=== PATIENT | male | born 1935 | race Caucasian/White ===

== ENCOUNTER 2017-03-18 18:36 | Emergency (ER) | payer OTHER, MEDICARE ==
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
[2017-03-18 20:41] VITALS: BP 132/88
== END 2017-03-18 20:40 | disposition home or self-care (01) ==
LOC: ER 18:36
DX: K40.91 Unilateral inguinal hernia, without obstruction or gangrene, recurrent (principal); J44.9 Chronic obstructive pulmonary disease, unspecified; Z99.81 Dependence on supplemental oxygen; I25.10 Atherosclerotic heart disease of native coronary artery without angina pectoris; I10 Essential (primary) hypertension; Z95.1 Presence of aortocoronary bypass graft
CPT/HCPCS: 99283

== ENCOUNTER 2017-03-22 12:00 | Inpatient (IN) | payer OTHER, MEDICARE ==
[~2017-03-22 12:00] MED LIST: GLYCOPYRROLATE INJ 0.4 MG/2 ML VIAL ONE; NEOSTIGMINE METHYLSULFATE 10 MG/10 ML VIAL ONE; ROCURONIUM BROMIDE INJ 50 MG/5 ML VIAL IV ONE; SUCCINYLCHOLINE CHLORIDE INJ 200 MG/10 ML VIAL ONE
[2017-03-22] MEDS ORDERED: NORMAL SALINE 1000 ML 1,000 ML IV ONE (12:16)
--- NOTE | 2017-03-22 12:20 | ER Document Report ---
ED Medical Screen (RME) - General Chief Complaint: Vomiting Stated Complaint: WEADKNESS Time Seen by Provider: 03/22/17 12:15 Notes: Patient has been vomiting since , about twice a day. Patient was here in this emergency department Thursday for a left inguinal hernia that had come out. The family relates that the hernia was pushed back in and the patient was discharged home, but he has been vomiting ever since. He is having bowel movements, his most recent being this morning and they are normal, no blood present. Patient says he has generalized abdominal discomfort. Patient is a COPD patient on home oxygen. TRAVEL OUTSIDE OF THE [place] IN LAST 30 DAYS: No - Related Data Allergies/Adverse Reactions: No Known Allergies Allergy (Verified 03/22/17 12:03) Past Medical History - Past Medical History Cardiac Medical History: Reports: Hx Congestive Heart Failure, Hx Coronary Artery Disease, Hx Hypercholesterolemia, Hx Hypertension Pulmonary Medical History: Reports: Hx COPD, Hx Pneumonia Renal/ Medical History: Denies: Hx Peritoneal Dialysis GI Medical History: Reports: Hx Ulcerative Colitis Psychiatric Medical History: Reports: Hx Depression Past Surgical History: Reports: Hx Abdominal Surgery, Hx Cardiac Surgery, Hx Coronary Artery Bypass Graft - Triple Bypass, Hx Inguinal Hernia, Hx Open Heart Surgery - Immunizations Hx Diphtheria, Pertussis, Tetanus Vaccination: Yes Physical Exam - Vital signs Vitals: Temp Pulse Resp BP Pulse Ox 96.8 F L 99 17 95/72 L 92 03/22/17 12:03 03/22/17 12:03 03/22/17 12:03 03/22/17 12:03 03/22/17 12:03 Course - Vital Signs Vital signs: Temp Pulse Resp BP Pulse Ox 96.8 F L 99 17 95/72 L 92 03/22/17 12:03 03/22/17 12:03 03/22/17 12:03 03/22/17 12:03 03/22/17 12:03
[2017-03-22 12:56] LABS: ABSOLUTE LYMPHOCYTES (AUTO) 1.4 10^3/uL (0.5-4.7); ABSOLUTE MONOCYTES (AUTO) 2.3 10^3/uL (0.1-1.4); ABSOLUTE NEUT (AUTO) 15.5 10^3/uL (1.7-8.2); BASOPHILS % (AUTO) 0.2 % (0-2); EOSINOPHILS % (AUTO) 0.1 % (0-6); HEMATOCRIT 39.5 % (37.9-51.0); HEMOGLOBIN 12.8 g/dL (13.5-17.0); HGB HCT DIFFERENCE -1.1; LYMPHOCYTES % (AUTO) 7.2 % (13-45); MEAN CORPUSCULAR HEMOGLOBIN 28.8 pg (27.0-33.4); MEAN CORPUSCULAR HGB CONC 32.5 g/dL (32.0-36.0); MEAN CORPUSCULAR VOLUME 89 fl (80-97); MONOCYTES % (AUTO) 12.1 % (3-13); RED BLOOD COUNT 4.45 10^6/uL (4.35-5.55); RED CELL DISTRIBUTION WIDTH 13.7 % (11.5-14.0); SEGMENTED NEUTROPHILS % (AUTO) 80.4 % (42-78); WHITE BLOOD COUNT 19.3 10^3/uL (4.0-10.5)
[2017-03-22 13:18] LABS: ALANINE AMINOTRANSFERASE 27 U/L (21-72); ALBUMIN 4.3 g/dL (3.5-5.0); ALKALINE PHOSPHATASE 80 U/L (38-126); ANION GAP 12 (5-19); ASPARTATE AMINO TRANSFERASE 39 U/L (17-59); BILIRUBIN,DIRECT 0.4 mg/dL (0.0-0.4); BILIRUBIN,TOTAL 1.1 mg/dL (0.2-1.3); BLOOD UREA NITROGEN 45 mg/dL (7-20); CALCIUM 9.8 mg/dL (8.4-10.2); CARBON DIOXIDE 34 mmol/L (22-30); CHLORIDE 91 mmol/L (98-107); GLUCOSE 122 mg/dL (75-110); LIPASE 35.8 U/L (23-300); POTASSIUM 4.3 mmol/L (3.6-5.0); SODIUM 137.4 mmol/L (137-145); TOTAL PROTEIN 8.2 g/dL (6.3-8.2)
[2017-03-22] MEDS ORDERED: NORMAL SALINE 500 ML IV PRN (13:43)
[2017-03-22] MEDS ORDERED: LEVOFLOXACIN 500 MG/D5W RTU 100 ML IV ONE (13:44)
--- NOTE | 2017-03-22 13:48 | ER Document Report ---
ED General - General Chief Complaint: Vomiting Stated Complaint: WEADKNESS Time Seen by Provider: 03/22/17 12:15 Mode of Arrival: Wheelchair Information source: Patient Notes: 82-year-old man with a history of COPD (2 L oxygen), coronary artery disease, hypertension brought into the emergency room because of nausea, vomiting, not keeping food down for the past several days. Patient was in the emergency room is ago for an evaluation of a reducible left inguinal hernia TRAVEL OUTSIDE OF THE [place] IN LAST 30 DAYS: No - HPI Onset: Last week Onset/Duration: Gradual Quality of pain: Dull Severity: Moderate Pain Level: 2 Associated symptoms: Nausea, Vomiting. denies: Chills, Fever Exacerbated by: Denies Relieved by: Denies Similar symptoms previously: Yes Recently seen / treated by doctor: Yes - Related Data Allergies/Adverse Reactions: No Known Allergies Allergy (Verified 03/22/17 12:03) Past Medical History - General Information source: Patient - Social History Smoking Status: Former Smoker Cigarette use (# per day): No Chew tobacco use (# tins/day): No Frequency of alcohol use: None Drug Abuse: None Lives with: Family Family History: Reviewed & Not Pertinent Patient has suicidal ideation: No Patient has homicidal ideation: No - Past Medical History Cardiac Medical History: Reports: Hx Congestive Heart Failure, Hx Coronary Artery Disease, Hx Hypercholesterolemia, Hx Hypertension Pulmonary Medical History: Reports: Hx COPD, Hx Pneumonia Renal/ Medical History: Denies: Hx Peritoneal Dialysis GI Medical History: Reports: Hx Ulcerative Colitis Psychiatric Medical History: Reports: Hx Depression Past Surgical History: Reports: Hx Abdominal Surgery, Hx Cardiac Surgery, Hx Coronary Artery Bypass Graft - Triple Bypass, Hx Inguinal Hernia, Hx Open Heart Surgery - Immunizations Hx Diphtheria, Pertussis, Tetanus Vaccination: Yes Hx Pneumococcal Vaccination: 10/12/13 Review of Systems - Review of Systems Constitutional: denies: Chills, Fever EENT: No symptoms reported Cardiovascular: No symptoms reported Respiratory: No symptoms reported Gastrointestinal: See HPI Genitourinary: No symptoms reported Male Genitourinary: No symptoms reported Musculoskeletal: No symptoms reported Skin: No symptoms reported Hematologic/Lymphatic: No symptoms reported Neurological/Psychological: No symptoms reported Physical Exam - Vital signs Vitals: Temp Pulse Resp BP Pulse Ox 96.8 F L 99 17 95/72 L 92 03/22/17 12:03 03/22/17 12:03 03/22/17 12:03 03/22/17 12:03 03/22/17 12:03 Notes: Physical exam: GENERAL: Man, alert and oriented 3, no acute distress. HEAD: Atraumatic, normocephalic. EYES: Pupils equal round and reactive to light, extraocular movements intact, sclera anicteric, conjunctiva are normal. ENT: Dry mucous membranes. NECK: Normal range of motion, supple without lymphadenopathy or JVD. LUNGS: Breath sounds clear to auscultation bilaterally and equal. No wheezes rales or rhonchi. HEART: Regular rate and rhythm without murmurs, rubs or gallops. ABDOMEN: Soft, normoactive bowel sounds. Patient does have old laparotomy scar with soft defects in the anterior abdominal wall with no obvious incarcerated hernia. There is no significant tenderness, no guarding, no rebound. Groin: Patient does have left tenderness and fullness in the inguinal region. Overlying skin is not erythematous no warmth Patient does have an elevated hard and nontender left testicle. The epididymis is somewhat swollen and is nontender to palpation. The right testicle is normal. rectal:Temperature is 99.0f. There is no prostate tenderness to palpation. Stool is (the patient is on iron). Stool studies sent EXTREMITIES: Normal range of motion, no pitting or edema. No clubbing or cyanosis. NEUROLOGICAL: Cranial nerves II through XII grossly intact. Normal speech, normal gait. PSYCH: Normal mood, normal affect. SKIN: Warm, Dry, normal turgor, no rashes or lesions noted. Course - Re-evaluation Re-evalutation: 03/22/17 15:04 Discussed case with radiologist: CT shows an incarcerated left inguinal hernia with obstruction. I consulted Dr. Mabry of surgery - Vital Signs Vital signs: Temp Pulse Resp BP Pulse Ox 99.0 F 99 27 H 119/89 H 99 03/22/17 13:43 03/22/17 12:03 03/22/17 16:01 03/22/17 16:01 03/22/17 16:01 - Laboratory Result Diagrams: 03/22/17 12:42 03/22/17 12:42 Laboratory results interpreted by me: 03/22/17 03/22/17 12:42 12:42 WBC 19.3 H Hgb 12.8 L Seg Neutrophils % 80.4 H Lymphocytes % 7.2 L Absolute Neutrophils 15.5 H Absolute Monocytes 2.3 H Chloride 91 L Carbon Dioxide 34 H BUN 45 H Glucose 122 H - Diagnostic Test Radiology reviewed: Image reviewed, Reports reviewed - The abdomen shows an incarcerated left inguinal hernia - EKG Interpretation by Me Rate: Normal Rhythm: NSR - EKG shows normal sinus rhythm with a ventricular rate of 96, no acute ST-T wave change Critical Care Note - Critical Care Note Total time excluding time spent on procedures (mins): 60 Discharge - Discharge Clinical Impression: Hernia repair, Hernia of abdominal wall Condition: Serious Disposition: ADMITTED INPATIENT
[2017-03-22] MEDS ORDERED: ONDANSETRON HCL INJ/PF 4 MG/2 ML SDV IV ONE (13:51)
--- NOTE | 2017-03-22 14:50 | RADIOLOGY REPORT (SQ) ---
EXAM DESCRIPTION: CHEST PA/LAT COMPLETED DATE/TIME: 03/22/2017 2:41 pm REASON FOR STUDY: COPD, vomiting, abdominal pain COMPARISON: 07/10/2016 NUMBER OF VIEWS: Two view. TECHNIQUE: Frontal and lateral radiographic views of the chest acquired. LIMITATIONS: None. FINDINGS: LUNGS AND PLEURA: No opacities, masses or pneumothorax. No pleural effusion. MEDIASTINUM AND HILAR STRUCTURES: No masses or contour abnormalities. HEART AND VASCULATURE: Heart normal size. No evidence for failure. Prior CABG. BONES: No acute findings. HARDWARE: CABG hardware. OTHER: No other significant finding. IMPRESSION: NO SIGNIFICANT RADIOGRAPHIC FINDING IN THE CHEST. PRIOR CABG. TECHNICAL DOCUMENTATION: JOB ID: [id number] [employer]- All Rights Reserved
--- NOTE | 2017-03-22 14:56 | RADIOLOGY REPORT (SQ) ---
EXAM DESCRIPTION: CT ABD/PELVIS WITH IV ONLY COMPLETED DATE/TIME: 03/22/2017 2:34 pm REASON FOR STUDY: abd pain COMPARISON: None. TECHNIQUE: CT scan of the abdomen and pelvis performed using helical scanning technique with dynamic intravenous contrast injection. No oral contrast. Images reviewed with lung, soft tissue, and bone windows. Reconstructed coronal and sagittal MPR images reviewed. Delayed images for evaluation of the urinary system also acquired. All images stored on PACS. All CT scanners at this facility use dose modulation, iterative reconstruction, and/or weight based d osing when appropriate to reduce radiation dose to as low as reasonably achievable (ALARA). [facility]: Dose Right [facility]: CareDose [facility]: Dose Right [facility]: Teradose 4D [facility]: AssayMetrics CONTRAST TYPE AND DOSE: 70 Isovue 370- low osmolar. RENAL FUNCTION: GFR > 60. RADIATION DOSE: 17.73mGy. LIMITATIONS: None. FINDINGS: LOWER CHEST: Patchy airspace opacities within the right middle lobe and left lower lobe. LIVER: Normal size. No masses or dilated ducts. SPLEEN: Normal size. No focal lesions. PANCREAS: No masses. No significant calcifications. No adjacent inflammation or peripancreatic fluid collections. Pancreatic duct not dilated. GALLBLADDER: No identified stones by CT criteria. No inflammatory changes to suggest cholecystitis. ADRENAL GLANDS: No significant masses or asymmetry. RIGHT KIDNEY AND URETER: No solid masses. No significant calcifications. No hydronephrosis or hyd roureter. LEFT KIDNEY AND URETER: No solid masses. No significant calcifications. No hydronephrosis or hydr oureter. AORTA AND VESSELS: Extensive atherosclerotic disease with infrarenal abdominal aortic aneurysm measur ing 4.9 x 4.7 cm and extending 5.6 cm in the craniocaudal dimension to the level of the iliac artery bifurcation. No acute injury identified. RETROPERITONEUM: No retroperitoneal adenopathy, hemorrhage or masses. BOWEL AND PERITONEAL CAVITY: Fluid distension of small bowel loops compatible with obstruction with t ransition point at a left inguinal hernia compatible with incarceration. No pneumatosis or free air. Large bowel loops are grossly normal. APPENDIX: Not visualized. PELVIS: No mass or free fluid. Normal bladder. ABDOMINAL WALL: No masses. Left inguinal hernia containing fat and in tear serrated loop of small misael wel. BONES: Degenerative change without fracture or suspicious osseous lesion. OTHER: No other significant finding. IMPRESSION: SMALL BOWEL OBSTRUCTION SECONDARY TO INCARCERATED LEFT INGUINAL HERNIA. NO PNEUMATOSIS OR FREE AIR. 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 FOLLOW-UP VASCULAR SURGICAL CONSULTATION RIGHT HIP. PATCHY AIRSPACE OPACITIES WITHIN THE RIGHT MIDDLE LOBE AND LEFT LOWER LOBE MAY REPRESENT ASPIRATION O R DEVELOPING PNEUMONIA. COMMENT: Pertinent findings on the imaging study reported as a CRITICAL RESULT to EKTA SIMON MD at14:50 on 03/22/2017. TECHNICAL DOCUMENTATION: JOB ID: [id number] Quality ID # [id number]: Final reports with documentation of one or more dose reduction techniques (e.g., Au tomated exposure control, adjustment of the mA and/or kV according to patient size, use of iterative reconstruction technique) 2010 [employer]- All Rights Reserved
[2017-03-22 15:33] LABS: PROTHROMBIN TIME 14.1 SEC (11.4-15.4)
[2017-03-22 16:46] LABS: CREATINE KINASE MB 4.29 ng/mL (<4.55)
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
[2017-03-22 16:57] LABS: TROPONIN I 0.036 ng/mL
[2017-03-22] MEDS ORDERED: FENTANYL CITRATE INJ/PF 250 MCG/5 ML AMPULE ONE (16:58)
[2017-03-22] MEDS ORDERED: MIDAZOLAM 2 MG/2 ML INJ ONE (16:58)
[2017-03-22] MEDS ORDERED: PROPOFOL INJ 200 MG/20 ML VIAL IV ONE (16:59)
[2017-03-22] MEDS ORDERED: MORPHINE SULFATE 10 MG/ML INJ ONE (17:00)
[2017-03-22] MEDS ORDERED: BUPIVACAINE HCL 0.25 % INJ/PF (2.5 MG/1 ML) 30 ML VIAL ONE (19:04)
[2017-03-22] MEDS ORDERED: AMPICILLIN SOD/SULBACTAM 1.5 GM VIAL ONE (20:18)
[2017-03-22] MEDS ORDERED: IPRATROPIUM/ALBUTEROL 0.5-2.5 MG/3 ML AMPUL NEB ONE (20:23)
[2017-03-22 20:25] LABS: ARTERIAL BLOOD BASE EXCESS 3.6 mmol/L; ARTERIAL BLOOD O2 SATURATION 96.3 % (94-98)
--- NOTE | 2017-03-22 20:48 | OPERATIVE REPORT E ---
Operative Report NAME: AUSTIN LEWIS : 1935 AGE: 82Y DATE OF SURGERY: 03/22/2017 ROOM: ED07 PREOPERATIVE DIAGNOSIS: Incarcerated left inguinal hernia with bowel obstruction. POSTOPERATIVE DIAGNOSIS: Incarcerated left inguinal hernia with bowel obstruction. OPERATION: 1. Reduction of incarcerated left inguinal hernia and repair with mesh plug. 2. Left orchiectomy. SURGEON: SAM BUCK M.D. INDICATIONS: This is an 82-year-old male with known COPD and oxygen dependent on 2 L noted to have cough, nausea, and some discomfort in the left inguinal area. He had a CT scan of the abdomen today in the Emergency Room and noted to have an incarcerated left inguinal hernia with small bowel obstruction. The patient also has possible pneumonia due to aspiration of the right middle lobe and left lower lobe on CT scan. We had initially some difficulty deciding whether to do the patient right away or wait until we can make arrangements for possible transfer to [facility] postoperative if indeed he will not be extubated postoperatively. DESCRIPTION OF PROCEDURE: After adequate general anesthesia, the patient was placed in supine position, and the abdomen and the left groin and scrotal areas were then prepped and draped in the usual sterile fashion. An appropriate timeout was obtained. The patient had a previous scar from a left inguinal hernia repair done in the past. An incision made over the scar just extended distally and proximally about 1 cm on each end. The incision deepened through the Neda's, and eventually the hernia sac was noted. The sac was then dissected all the way down into the fascia, and the sac has small bowel inside that appears to be viable or pink. The hernia defect roughly measures about 1.5 cm in diameter. The defect needed to be enlarged laterally by cutting through what appears to be mesh. The defect was enlarged at least 1 cm longer, and this time, the sac was opened, and the bowel noted to be viable was then pushed down into the abdominal cavity. There was some clear yellowish fluid that was suctioned out from the sac and just underneath it. The bowel was further inspected through the sac and definitely appeared viable. Next, the sac was then incised and divided. The sac opening just above the defect was then closed with running suture using 2-0 Vicryl suture. The sac was then pushed down into the abdominal cavity. Next, the cord structures appear to be right inside the defect, and to have a better closure, an orchiectomy would need to be done. I asked consent from the patient and the family prior to the procedure that orchiectomy most likely will be performed. The cord structures were then clamped right over the area of the sac that was divided, and subsequently was then divided in between another clamp. The cord structures were then ligated with 2-0 Vicryl ties. Next, the left scrotum was then bluntly dissected and completely removed. Hemostasis was further obtained with the use of electrocautery around the dissection areas. The operative site was then copiously irrigated with saline solution, and adequate hemostasis was noted. Next, the hernia defect was then closed with small mesh plug and sutured to the 4 corners of the shelving portion of the inguinal ligament and towards the conjoined tendon and external oblique. Next, flap mesh was then laid on top of the plug which was then trimmed about 3 cm x about 2.5 cm. It was then anchored to the shelving portion of the inguinal ligament just above the mesh plug and also to the conjoined tendon and external oblique, again just above the mesh plug. Next, the external oblique aponeurosis was then closed over the mesh with 2-0 Vicryl interrupted sutures. The mesh was partially compressed underneath, and there is not much of tension. Next, the Neda's was then closed with interrupted suture using 3-0 Vicryl and the skin closed with winifred. The patient tolerated the procedure well. Marcaine with epinephrine was injected on the fascia prior to placement of the mesh plug and the flap mesh. Again, local anesthesia with Marcaine and with epinephrine was also injected around the incision site in the subcutaneous areas. The skin was then closed with winifred. Sterile dressings were placed over the operative site. Needle, instrument, and sponge counts were all correct and estimated blood loss about 20 mL. The patient was extubated at the end of the procedure and appears to be tolerating extubation which will most likely avoid transfer to a tertiary hospital. He will be watched closely in the recovery room. He will then be transferred to the Intensive Care Unit. DICTATING PHYSICIAN: SAM BUCK M.D. [id number] PHY#: [id number] 2016 ID: [id number] JOB#: [id number] ACCT: [id number] cc:SAM BUCK M.D. >
[2017-03-22] MEDS ORDERED: MORPHINE SULFATE 10 MG/ML INJ IV PRN ×2 (21:52→21:53)
[2017-03-22] MEDS ORDERED: ONDANSETRON HCL INJ/PF 4 MG/2 ML SDV IV PRN (21:57)
[2017-03-22] MEDS ORDERED: NORMAL SALINE 1000 ML 1,000 ML IV PRN (21:59)
[2017-03-22 22:45] LABS: ANION GAP 9 (5-19); BLOOD UREA NITROGEN 27 mg/dL (7-20); CALCIUM 7.8 mg/dL (8.4-10.2); CARBON DIOXIDE 28 mmol/L (22-30); CHLORIDE 102 mmol/L (98-107); CREATINE KINASE 180 U/L (55-170); CREATININE RESULT 0.68 mg/dL (0.52-1.25); GLUCOSE 84 mg/dL (75-110); PHOSPHORUS 3.1 mg/dL (2.5-4.5); POTASSIUM 4.1 mmol/L (3.6-5.0); SODIUM 138.8 mmol/L (137-145)
[2017-03-22 22:46] LABS: MAGNESIUM 1.8 mg/dL (1.6-2.3)
[2017-03-22 22:55] LABS: APPEARANCE,URINE CLEAR; BILIRUBIN,URINE NEGATIVE (NEGATIVE); GLUCOSE, URINE NEGATIVE (NEGATIVE); KETONES,URINE TRACE mg/dL (NEGATIVE); LEUKOCYTE ESTERASE,URINE NEGATIVE (NEGATIVE); NITRITE,URINE NEGATIVE (NEGATIVE); PROTEIN,URINE NEGATIVE (NEGATIVE); UROBILINOGEN,URINE NEGATIVE mg/dL (<2.0)
[2017-03-22 22:57] LABS: CREATINE KINASE MB 5.77 ng/mL (<4.55); TROPONIN I 0.021 ng/mL
[2017-03-23] MEDS: FLUTICASONE NASAL SPRAY 50 MCG/SPRY 120 SPRAY/16 GM NASL SCH ×3 (01:27→21:14)
[2017-03-23] MEDS: IPRATROPIUM/ALBUTEROL 0.5-2.5 MG/3 ML AMPUL NEB SCH ×4 (02:29→20:09)
[2017-03-23] MEDS ORDERED: AMPICILLIN SOD/SULBACTAM 3 GM VIAL IV PRN (03:00)
[2017-03-23] MEDS ORDERED: AMPICILLIN SOD/SULBACTAM 3 GM VIAL ONE (03:34)
[2017-03-23] MEDS: AMPICILLIN SODIUM/SULBACTAM NA 3 GM in NORMAL SALINE 100 ML IV SCH ×4 (03:42→20:33)
[2017-03-23 05:13] LABS: ABSOLUTE EOSINOPHILS # (AUTO) 0.3 10^3/uL (0.0-0.6); ABSOLUTE LYMPHOCYTES (AUTO) 1.4 10^3/uL (0.5-4.7); ABSOLUTE MONOCYTES (AUTO) 1.7 10^3/uL (0.1-1.4); ABSOLUTE NEUT (AUTO) 7.8 10^3/uL (1.7-8.2); BASOPHILS % (AUTO) 0.4 % (0-2); EOSINOPHILS % (AUTO) 2.4 % (0-6); HEMATOCRIT 31.1 % (37.9-51.0); HGB HCT DIFFERENCE -1.1; LYMPHOCYTES % (AUTO) 12.7 % (13-45); MEAN CORPUSCULAR HGB CONC 32.1 g/dL (32.0-36.0); MEAN CORPUSCULAR VOLUME 90 fl (80-97); MONOCYTES % (AUTO) 15.5 % (3-13); RED BLOOD COUNT 3.44 10^6/uL (4.35-5.55); RED CELL DISTRIBUTION WIDTH 13.7 % (11.5-14.0); WHITE BLOOD COUNT 11.2 10^3/uL (4.0-10.5)
[2017-03-23 05:19] LABS: ANION GAP 7 (5-19); BLOOD UREA NITROGEN 22 mg/dL (7-20); CALCIUM 7.7 mg/dL (8.4-10.2); CARBON DIOXIDE 26 mmol/L (22-30); CHLORIDE 107 mmol/L (98-107); CREATINE KINASE 150 U/L (55-170); CREATININE RESULT 0.62 mg/dL (0.52-1.25); GLUCOSE 79 mg/dL (75-110); POTASSIUM 3.7 mmol/L (3.6-5.0); SODIUM 139.5 mmol/L (137-145)
[2017-03-23 05:32] LABS: CREATINE KINASE MB 5.06 ng/mL (<4.55); TROPONIN I 0.024 ng/mL
[2017-03-23] MEDS ORDERED: LEVOFLOXACIN 500 MG/D5W RTU 500 MG/100 ML RTUPB IV SCH (06:00)
--- NOTE | 2017-03-23 06:16 | PDOC CONSULTATION ---
Consultation Consult Date: 03/22/17 Attending physician:: SAM BUCK Consult reason:: Hypotension, coronary artery disease, COPD History of Present Illness Admission Date/PCP: 03/22/17 15:49 LEIGH DUDLEY NP Patient complains of: 4 days of inguinal pain History of Present Illness: AUSTIN LEWIS is a 82 year old male with a past medical history of coronary artery bypass, COPD, hypertension, CHF, Depression, Ulcerative colitis and right -sided inguinal repair. Patient was in the emergency room 4 days ago with a left incarcerated inguinal hernia it was reduced and he was sent home however the following day pain returned after an episode of coughing prompting him to return to the emergency room where he was found to have a incarcerated left inguinal hernia and transferred to the surgical service. Postoperatively he is with hypotension and requiring oxygen in the ICU prompting hospitalist consultation. Patient is awake and alert denying shortness of breath chest pain nausea or vomiting. Past Medical History Cardiac Medical History: Reports: Congestive Heart Failure, Coronary Artery Disease, Hyperlipidema, Hypertension Pulmonary Medical History: Reports: Chronic Obstructive Pulmonary Disease (COPD) , Pneumonia GI Medical History: Reports: Ulcerative Colitis Psychiatric Medical History: Reports: Depression Past Surgical History Past Surgical History: Reports: Coronary Artery Bypass Graft - Triple Bypass Social History Information Source: Patient, [facility] Records Lives with: Family Smoking Status: Former Smoker Frequency of Alcohol Use: None Hx Recreational Drug Use: No Drugs: None Hx Prescription Drug Abuse: No - Advance Directive Resuscitation Status: Full Code Family History Family History: Hypertension Parental Family History Reviewed: Yes Children Family History Reviewed: Yes Sibling(s) Family History Reviewed.: Yes Medication/Allergy Home Medications: Albuterol Sulfate [Ventolin 0.083% Neb 2.5 mg/3 mL Ampul] 2.5 mg NEB QID Aspirin [Aspirin 325 mg Tablet] 325 mg PO DAILY 07/11/16 Cilostazol 50 mg PO BID 07/11/16 Ferrous Sulfate [Iron] 324 mg PO DAILY 07/11/16 Mesalamine [Pentasa] 1,500 mg PO BID 07/11/16 Nitroglycerin 0.4 mg SL PRN 07/11/16 Sertraline HCl 150 mg PO HSP PRN 07/11/16 Simvastatin 40 mg PO QHS 07/11/16 Terazosin HCl 4 mg PO QHS 07/11/16 Budesonide [Pulmicort 180 mcg Flexhaler] 1 puff IH DAILY PRN #1 aer.[email or web address] 07/14 Doxycycline Hyclate [Vibramycin 100 mg Tablet] 100 mg PO Q12 #14 tablet Metoprolol Tartrate [Lopressor 25 mg Tablet] 12.5 mg PO BID #30 07/14/16 Prednisone 20 mg PO ASDIR PRN #30 tablet 07/14/16 Tiotropium [place] [Spiriva Handihaler 5 Cap/Kit (18 Mcg/Cap)] 1 cap IH DAILY # 30 kit 07/14/16 Allergies/Adverse Reactions: No Known Allergies Allergy (Verified 03/22/17 12:03) Review of Systems Constitutional: ABSENT: chills, fever(s), headache(s), weight gain, weight loss Eyes: ABSENT: visual disturbances Ears: ABSENT: hearing changes Cardiovascular: ABSENT: chest pain, dyspnea on exertion, edema, orthropnea, palpitations Respiratory: ABSENT: cough, hemoptysis Gastrointestinal: ABSENT: abdominal pain, constipation, diarrhea, hematemesis, hematochezia, nausea, vomiting Genitourinary: ABSENT: dysuria, hematuria Musculoskeletal: ABSENT: joint swelling Integumentary: ABSENT: rash, wounds Neurological: ABSENT: abnormal gait, abnormal speech, confusion, dizziness, focal weakness, syncope Psychiatric: ABSENT: anxiety, depression, homidical ideation, suicidal ideation Endocrine: ABSENT: cold intolerance, heat intolerance, polydipsia, polyuria Hematologic/Lymphatic: ABSENT: easy bleeding, easy bruising Physical Exam Vital Signs: Temp Pulse Resp BP Pulse Ox 97.9 F 82 20 122/58 L 99 03/23/17 05:20 03/23/17 05:20 03/23/17 05:20 03/23/17 05:20 03/23/17 05:20 Intake & Output 03/21/17 03/22/17 03/23/17 11:59 11:59 11:59 Intake Total 4937 Output Total 5680 Balance 3087 Weight 68.7 kg General appearance: PRESENT: no acute distress, well-developed, well-nourished Head exam: PRESENT: atraumatic, normocephalic Eye exam: PRESENT: conjunctiva pink, EOMI, PERRLA. ABSENT: scleral icterus Ear exam: PRESENT: normal external ear exam Mouth exam: PRESENT: moist, tongue midline Neck exam: ABSENT: carotid bruit, JVD, lymphadenopathy, thyromegaly Respiratory exam: PRESENT: clear to auscultation tyler. ABSENT: rales, rhonchi, wheezes Cardiovascular exam: PRESENT: RRR. ABSENT: diastolic murmur, rubs, systolic murmur Pulses: PRESENT: normal dorsalis pedis pul Vascular exam: PRESENT: normal capillary refill GI/Abdominal exam: PRESENT: normal bowel sounds, soft. ABSENT: distended, guarding, mass, organolmegaly, rebound, tenderness Rectal exam: PRESENT: deferred Extremities exam: PRESENT: full ROM. ABSENT: calf tenderness, clubbing, pedal edema Neurological exam: PRESENT: alert, awake, oriented to person, oriented to place , oriented to time, oriented to situation, CN II-XII grossly intact. ABSENT: motor sensory deficit Psychiatric exam: PRESENT: appropriate affect, normal mood. ABSENT: homicidal ideation, suicidal ideation Skin exam: PRESENT: dry, intact, warm. ABSENT: cyanosis, rash Results Laboratory Results: 03/23/17 04:45 03/23/17 04:45 03/22/17 03/22/17 03/22/17 15:50 20:08 22:00 WBC RBC Hgb Hct MCV MCH MCHC RDW Plt Count Seg Neutrophils % Lymphocytes % Monocytes % Eosinophils % Basophils % Absolute Neutrophils Absolute Lymphocytes Absolute Monocytes Absolute Eosinophils Absolute Basophils Carbonic Acid 1.83 H HCO3/H2CO3 Ratio 16:1 ABG pH 7.32 L ABG pCO2 60.8 H ABG pO2 91.8 ABG HCO3 30.9 H ABG O2 Saturation 96.3 ABG Base Excess 3.6 FiO2 6 LITERS Sodium 138.8 Potassium 4.1 Chloride 102 Carbon Dioxide 28 Anion Gap 9 BUN 27 H Creatinine 0.68 Est GFR ( Amer) > 60 Est GFR (Non-Af Amer) > 60 Glucose 84 Calcium 7.8 L Phosphorus 3.1 Magnesium 1.8 Urine Color Urine Appearance Urine pH Ur Specific [place] Urine Protein Urine Glucose (UA) Urine Ketones Urine Blood Urine Nitrite Ur Leukocyte Esterase Urine WBC (Auto) Urine RBC (Auto) Blood Type A POSITIVE Antibody Screen NEGATIVE 03/22/17 03/23/17 03/23/17 22:00 04:45 04:45 WBC 11.2 H RBC 3.44 L Hgb 10.0 L D Hct 31.1 L MCV 90 MCH 29.0 MCHC 32.1 RDW 13.7 Plt Count 261 Seg Neutrophils % 69.0 Lymphocytes % 12.7 L Monocytes % 15.5 H Eosinophils % 2.4 Basophils % 0.4 Absolute Neutrophils 7.8 Absolute Lymphocytes 1.4 Absolute Monocytes 1.7 H Absolute Eosinophils 0.3 Absolute Basophils 0.0 Carbonic Acid HCO3/H2CO3 Ratio ABG pH ABG pCO2 ABG pO2 ABG HCO3 ABG O2 Saturation ABG Base Excess FiO2 Sodium 139.5 Potassium 3.7 Chloride 107 Carbon Dioxide 26 Anion Gap 7 BUN 22 H Creatinine 0.62 Est GFR ( Amer) > 60 Est GFR (Non-Af Amer) > 60 Glucose 79 Calcium 7.7 L Phosphorus Magnesium Urine Color YELLOW Urine Appearance CLEAR Urine pH 5.0 Ur Specific [place] 1.040 Urine Protein NEGATIVE Urine Glucose (UA) NEGATIVE Urine Ketones TRACE H Urine Blood SMALL H Urine Nitrite NEGATIVE Ur Leukocyte Esterase NEGATIVE Urine WBC (Auto) 0 Urine RBC (Auto) 15 Blood Type Antibody Screen 03/22/17 03/22/17 03/22/17 15:50 22:00 22:00 Creatine Kinase 173 H 180 H CK-MB (CK-2) 5.77 H Troponin I 0.021 03/23/17 03/23/17 04:45 04:45 Creatine Kinase 150 CK-MB (CK-2) 5.06 H Troponin I 0.024 Impressions: Chest X-Ray 03/22/17 12:17 IMPRESSION: NO SIGNIFICANT RADIOGRAPHIC FINDING IN THE CHEST. PRIOR CABG. Abdomen/Pelvis CT 03/22/17 13:49 IMPRESSION: SMALL BOWEL OBSTRUCTION SECONDARY TO INCARCERATED LEFT INGUINAL HERNIA. NO PNEUMATOSIS OR FREE AIR. 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 FOLLOW-UP VASCULAR SURGICAL CONSULTATION RIGHT HIP. PATCHY AIRSPACE OPACITIES WITHIN THE RIGHT MIDDLE LOBE AND LEFT LOWER LOBE MAY REPRESENT ASPIRATION OR DEVELOPING PNEUMONIA. Assessment & Plan - Diagnosis (1) Hypotension Is this a current diagnosis for this admission?: YesPlan: Most likely secondary to perioperative anesthesia and mild dehydration he is comfortable and asymptomatic with a map greater than 65 I will consider a IV fluid challenge if urine output decreases followed by pressors as needed (2) CAD (coronary artery disease) Qualifiers: Coronary Disease-Associated Artery/Lesion type: unspecified vessel or lesion type [place] vs. transplanted heart: [place] heart Associated angina: without angina Qualified Code(s): I25.10 - Atherosclerotic heart disease of [place] coronary artery without angina pectoris Is this a current diagnosis for this admission?: YesPlan: Resumption of home regiment of aspirin and beta-derick as blood pressure allows. Will obtain cardiac enzymes given perioperative hypotension and possible differential diagnosis of acute LA. (3) COPD exacerbation Is this a current diagnosis for this admission?: YesPlan: Albuterol Atrovent, flutter valve, incentive spirometry and early mobilization. - Time Time Spent: 30 to 50 Minutes
--- NOTE | 2017-03-23 07:31 | RADIOLOGY REPORT (SQ) ---
EXAM DESCRIPTION: CHEST SINGLE VIEW COMPLETED DATE/TIME: 03/23/2017 7:11 am REASON FOR STUDY: Cough/SOB COMPARISON: 03/22/2017. EXAM PARAMETERS: NUMBER OF VIEWS: One view. TECHNIQUE: Single frontal radiographic view of the chest acquired. RADIATION DOSE: NA LIMITATIONS: Mild interstitial markings. FINDINGS: LUNGS AND PLEURA: No opacities, masses or pneumothorax. No pleural effusion. Mild interst itial markings. Small scar-atelectasis. MEDIASTINUM AND HILAR STRUCTURES: No masses. Contour normal. HEART AND VASCULAR STRUCTURES: Heart normal in size. Normal vasculature. BONES: Cyst median sternotomy. HARDWARE: None in the chest. OTHER: No other significant finding. IMPRESSION: NO ACUTE RADIOGRAPHIC FINDING IN THE CHEST. No acute findings. TECHNICAL DOCUMENTATION: JOB ID: [id number]
[2017-03-23 08:42] LABS: ARTERIAL BLOOD BASE EXCESS 2.1 mmol/L; ARTERIAL BLOOD O2 SATURATION 97.1 % (94-98)
[2017-03-23] MEDS ORDERED: NORMAL SALINE 1000 ML 1,000 ML IV PRN (09:38)
--- NOTE | 2017-03-23 09:38 | EKG REPORT ---
SEVERITY:- BORDERLINE ECG - SINUS RHYTHM RIGHT AXIS DEVIATION BORDERLINE INFERIOR Q WAVES : Confirmed by: Shayla Calvin 23-Mar-2017 09:37:11
--- NOTE | 2017-03-23 09:38 | EKG REPORT ---
SEVERITY:- OTHERWISE NORMAL ECG - SINUS RHYTHM RIGHT AXIS DEVIATION : Confirmed by: Shayla Calvin 23-Mar-2017 09:37:06
[2017-03-23] MEDS: ASPIRIN 325 MG TABLET PO SCH (10:51)
[2017-03-23] MEDS: METOPROLOL TARTRATE 25 MG TABLET PO SCH ×2 (10:54→18:43)
[2017-03-23] MEDS: MESALAMINE 250 MG CAPSULE.SA PO SCH ×2 (10:54→18:44)
--- NOTE | 2017-03-23 11:00 | PDOC PROGRESS REPORT ---
Subjective Progress Note for:: 03/23/17 Subjective:: Patient is tolerating clear liquid diet, good pain control. His extubated without complication Physical Exam Vital Signs: Temp Pulse Resp BP Pulse Ox 98.0 F 90 21 H 133/67 H 100 03/23/17 08:00 03/23/17 08:38 03/23/17 08:38 03/23/17 08:00 03/23/17 08:38 Intake & Output 03/22/17 03/23/17 03/24/17 06:59 06:59 06:59 Intake Total 1937 Output Total 1050 Balance 887 Weight 68.7 kg General appearance: PRESENT: no acute distress GI/Abdominal exam: PRESENT: other - Inguinal herniorrhaphy dressing dry and intact. Results Laboratory Results: 03/23/17 04:45 03/23/17 04:45 03/22/17 03/22/17 03/23/17 22:00 22:00 04:45 WBC RBC Hgb Hct MCV MCH MCHC RDW Plt Count Seg Neutrophils % Lymphocytes % Monocytes % Eosinophils % Basophils % Absolute Neutrophils Absolute Lymphocytes Absolute Monocytes Absolute Eosinophils Absolute Basophils Carbonic Acid HCO3/H2CO3 Ratio ABG pH ABG pCO2 ABG pO2 ABG HCO3 ABG O2 Saturation ABG Base Excess FiO2 Sodium 138.8 139.5 Potassium 4.1 3.7 Chloride 102 107 Carbon Dioxide 28 26 Anion Gap 9 7 BUN 27 H 22 H Creatinine 0.68 0.62 Est GFR ( Amer) > 60 > 60 Est GFR (Non-Af Amer) > 60 > 60 Glucose 84 79 Calcium 7.8 L 7.7 L Phosphorus 3.1 Magnesium 1.8 Urine Color YELLOW Urine Appearance CLEAR Urine pH 5.0 Ur Specific [place] 1.040 Urine Protein NEGATIVE Urine Glucose (UA) NEGATIVE Urine Ketones TRACE H Urine Blood SMALL H Urine Nitrite NEGATIVE Ur Leukocyte Esterase NEGATIVE Urine WBC (Auto) 0 Urine RBC (Auto) 15 03/23/17 03/23/17 04:45 08:25 WBC 11.2 H RBC 3.44 L Hgb 10.0 L D Hct 31.1 L MCV 90 MCH 29.0 MCHC 32.1 RDW 13.7 Plt Count 261 Seg Neutrophils % 69.0 Lymphocytes % 12.7 L Monocytes % 15.5 H Eosinophils % 2.4 Basophils % 0.4 Absolute Neutrophils 7.8 Absolute Lymphocytes 1.4 Absolute Monocytes 1.7 H Absolute Eosinophils 0.3 Absolute Basophils 0.0 Carbonic Acid 1.58 H HCO3/H2CO3 Ratio 18:1 ABG pH 7.35 ABG pCO2 52.6 H ABG pO2 98.2 ABG HCO3 28.5 H ABG O2 Saturation 97.1 ABG Base Excess 2.1 FiO2 3L Sodium Potassium Chloride Carbon Dioxide Anion Gap BUN Creatinine Est GFR ( Amer) Est GFR (Non-Af Amer) Glucose Calcium Phosphorus Magnesium Urine Color Urine Appearance Urine pH Ur Specific [place] Urine Protein Urine Glucose (UA) Urine Ketones Urine Blood Urine Nitrite Ur Leukocyte Esterase Urine WBC (Auto) Urine RBC (Auto) 03/22/17 03/22/17 03/23/17 22:00 22:00 04:45 Creatine Kinase 180 H 150 CK-MB (CK-2) 5.77 H Troponin I 0.021 03/23/17 04:45 Creatine Kinase CK-MB (CK-2) 5.06 H Troponin I 0.024 Impressions: Abdomen/Pelvis CT 03/22/17 13:49 IMPRESSION: SMALL BOWEL OBSTRUCTION SECONDARY TO INCARCERATED LEFT INGUINAL HERNIA. NO PNEUMATOSIS OR FREE AIR. 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 FOLLOW-UP VASCULAR SURGICAL CONSULTATION RIGHT HIP. PATCHY AIRSPACE OPACITIES WITHIN THE RIGHT MIDDLE LOBE AND LEFT LOWER LOBE MAY REPRESENT ASPIRATION OR DEVELOPING PNEUMONIA. Chest X-Ray 03/23/17 06:00 IMPRESSION: NO ACUTE RADIOGRAPHIC FINDING IN THE CHEST. No acute findings. Assessment & Plan - Diagnosis (1) Hernia repair Is this a current diagnosis for this admission?: YesPlan: Postoperative day 1, doing well, no complications thus far Recommend ; 1. DC support systems including arterial pressure line. 2. Anticipate transfer to the floor.
[2017-03-23] MEDS: OXYCODONE-ACETAMINOPHEN 5-325 MG TABLET PO PRN ×2 (11:29→22:32)
[2017-03-23 16:12] LABS: CREATINE KINASE MB 4.09 ng/mL (<4.55); TROPONIN I 0.013 ng/mL
--- NOTE | 2017-03-23 17:35 | PDOC CONSULTATION ---
Consultation Consult Date: 03/23/17 Attending physician:: SAM BUCK Consult reason:: chronic hypercapnic resp fail History of Present Illness Admission Date/PCP: 03/22/17 15:49 LEIGH DUDLEY NP History of Present Illness: AUSTIN LEWIS is a 82 year old male with a past medical history of coronary artery bypass, COPD, hypertension, CHF, Depression, Ulcerative colitis and right -sided inguinal repair. Patient was in the emergency room 4 days ago with a left incarcerated inguinal hernia it was reduced and he was sent home however the following day pain returned after an episode of coughing prompting him to return to the emergency room where he was found to have a incarcerated left inguinal hernia and transferred to the surgical service. Postoperatively he is with hypotension and requiring oxygen in the ICU prompting hospitalist consultation. Patient is awake and alert denying shortness of breath chest pain nausea or vomiting. Past Medical History Cardiac Medical History: Reports: Congestive Heart Failure, Coronary Artery Disease, Hyperlipidema, Hypertension Pulmonary Medical History: Reports: Chronic Obstructive Pulmonary Disease (COPD) , Pneumonia GI Medical History: Reports: Ulcerative Colitis Psychiatric Medical History: Reports: Depression Past Surgical History Past Surgical History: Reports: Coronary Artery Bypass Graft - Triple Bypass Social History Information Source: [facility] Records Lives with: Family Smoking Status: Former Smoker Frequency of Alcohol Use: None Hx Recreational Drug Use: No Drugs: None Hx Prescription Drug Abuse: No - Advance Directive Resuscitation Status: Full Code Family History Family History: Hypertension Parental Family History Reviewed: No Children Family History Reviewed: No Sibling(s) Family History Reviewed.: No Medication/Allergy Home Medications: Albuterol Sulfate [Proair HFA] 2 puff IH [id number] PRN 03/23/17 Albuterol Sulfate [Ventolin 0.083% Neb 2.5 mg/3 ml Ampul] 1 vial NEB RTQID 03/23 Aspirin [Aspirin 325 mg Tablet] 325 mg PO DAILY 03/23/17 Budesonide/Formoterol Fumarate [Symbicort Hfa 160-4.5 Mcg Inhaler 6 gm] 2 puff IH DAILY 03/23/17 Cilostazol [Pletal 100 Mg Tablet] 50 mg PO BID 03/23/17 Ferrous Sulfate 324 mg PO DAILY 03/23/17 Ipratropium/Albuterol Sulfate [Combivent Respimat Inhal [place]] 1 puff IH QID 09/27 Metoprolol Tartrate [Lopressor 50 mg Tablet] 50 mg PO DAILY 03/23/17 Sertraline HCl [Zoloft] 100 mg PO QHS 03/23/17 Simvastatin [Zocor 80 mg Tablet] 40 mg PO QHS 03/23/17 Sodium Chloride For Inhalation [Sodium Chloride] 3 ml IH RTQID 03/23/17 Terazosin HCl [Hytrin] 4 mg PO QHS 03/23/17 Tiotropium [place] [Spiriva Handihaler 5 Cap/Kit (18 Mcg/Cap)] 1 cap IH DAILY Allergies/Adverse Reactions: No Known Allergies Allergy (Verified 03/22/17 12:03) Physical Exam Vital Signs: Temp Pulse Resp BP Pulse Ox 98.0 F 86 22 H 133/67 H 100 03/23/17 08:00 03/23/17 08:11 03/23/17 08:00 03/23/17 08:00 03/23/17 08:00 Intake & Output 03/22/17 03/23/17 03/24/17 06:59 06:59 06:59 Intake Total 4937 Output Total 1850 Balance 3087 Weight 68.7 kg General appearance: PRESENT: no acute distress, hard of hearing, obese, well- developed, well-nourished Head exam: PRESENT: atraumatic, normocephalic Eye exam: PRESENT: conjunctiva pale, EOMI Mouth exam: PRESENT: dry mucosa, neck supple, tongue midline Neck exam: ABSENT: carotid bruit, JVD, lymphadenopathy, thyromegaly Respiratory exam: PRESENT: decreased breath sounds, prolonged expiratory phas Cardiovascular exam: PRESENT: RRR, +S1, +S2 Pulses: PRESENT: normal radial pulses GI/Abdominal exam: PRESENT: normal bowel sounds, soft. ABSENT: distended, guarding, mass, organolmegaly, rebound, tenderness Rectal exam: PRESENT: deferred Gentrourinary exam: PRESENT: indwelling catheter Musculoskeletal exam: PRESENT: normal inspection Neurological exam: PRESENT: alert, awake Skin exam: PRESENT: dry, warm Results Laboratory Results: 03/23/17 04:45 03/23/17 04:45 03/22/17 03/22/17 03/22/17 15:50 20:08 22:00 WBC RBC Hgb Hct MCV MCH MCHC RDW Plt Count Seg Neutrophils % Lymphocytes % Monocytes % Eosinophils % Basophils % Absolute Neutrophils Absolute Lymphocytes Absolute Monocytes Absolute Eosinophils Absolute Basophils Carbonic Acid 1.83 H HCO3/H2CO3 Ratio 16:1 ABG pH 7.32 L ABG pCO2 60.8 H ABG pO2 91.8 ABG HCO3 30.9 H ABG O2 Saturation 96.3 ABG Base Excess 3.6 FiO2 6 LITERS Sodium 138.8 Potassium 4.1 Chloride 102 Carbon Dioxide 28 Anion Gap 9 BUN 27 H Creatinine 0.68 Est GFR ( Amer) > 60 Est GFR (Non-Af Amer) > 60 Glucose 84 Calcium 7.8 L Phosphorus 3.1 Magnesium 1.8 Urine Color Urine Appearance Urine pH Ur Specific [place] Urine Protein Urine Glucose (UA) Urine Ketones Urine Blood Urine Nitrite Ur Leukocyte Esterase Urine WBC (Auto) Urine RBC (Auto) Blood Type A POSITIVE Antibody Screen NEGATIVE 03/22/17 03/23/17 03/23/17 22:00 04:45 04:45 WBC 11.2 H RBC 3.44 L Hgb 10.0 L D Hct 31.1 L MCV 90 MCH 29.0 MCHC 32.1 RDW 13.7 Plt Count 261 Seg Neutrophils % 69.0 Lymphocytes % 12.7 L Monocytes % 15.5 H Eosinophils % 2.4 Basophils % 0.4 Absolute Neutrophils 7.8 Absolute Lymphocytes 1.4 Absolute Monocytes 1.7 H Absolute Eosinophils 0.3 Absolute Basophils 0.0 Carbonic Acid HCO3/H2CO3 Ratio ABG pH ABG pCO2 ABG pO2 ABG HCO3 ABG O2 Saturation ABG Base Excess FiO2 Sodium 139.5 Potassium 3.7 Chloride 107 Carbon Dioxide 26 Anion Gap 7 BUN 22 H Creatinine 0.62 Est GFR ( Amer) > 60 Est GFR (Non-Af Amer) > 60 Glucose 79 Calcium 7.7 L Phosphorus Magnesium Urine Color YELLOW Urine Appearance CLEAR Urine pH 5.0 Ur Specific [place] 1.040 Urine Protein NEGATIVE Urine Glucose (UA) NEGATIVE Urine Ketones TRACE H Urine Blood SMALL H Urine Nitrite NEGATIVE Ur Leukocyte Esterase NEGATIVE Urine WBC (Auto) 0 Urine RBC (Auto) 15 Blood Type Antibody Screen 03/22/17 03/22/17 03/22/17 15:50 22:00 22:00 Creatine Kinase 173 H 180 H CK-MB (CK-2) 5.77 H Troponin I 0.021 03/23/17 03/23/17 04:45 04:45 Creatine Kinase 150 CK-MB (CK-2) 5.06 H Troponin I 0.024 Impressions: Abdomen/Pelvis CT 03/22/17 13:49 IMPRESSION: SMALL BOWEL OBSTRUCTION SECONDARY TO INCARCERATED LEFT INGUINAL HERNIA. NO PNEUMATOSIS OR FREE AIR. 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 FOLLOW-UP VASCULAR SURGICAL CONSULTATION RIGHT HIP. PATCHY AIRSPACE OPACITIES WITHIN THE RIGHT MIDDLE LOBE AND LEFT LOWER LOBE MAY REPRESENT ASPIRATION OR DEVELOPING PNEUMONIA. Chest X-Ray 03/23/17 06:00 IMPRESSION: NO ACUTE RADIOGRAPHIC FINDING IN THE CHEST. No acute findings. Assessment & Plan - Diagnosis (1) Hernia repair Is this a current diagnosis for this admission?: Yes (2) COPD exacerbation Is this a current diagnosis for this admission?: Yes - Time Critical Time spent with patient: 35 or more minutes
[2017-03-24] MEDS: IPRATROPIUM/ALBUTEROL 0.5-2.5 MG/3 ML AMPUL NEB SCH ×2 (02:08→08:19)
[2017-03-24] MEDS: AMPICILLIN SODIUM/SULBACTAM NA 3 GM in NORMAL SALINE 100 ML IV SCH ×4 (02:12→21:24)
[2017-03-24] MEDS: OXYCODONE-ACETAMINOPHEN 5-325 MG TABLET PO PRN ×2 (02:34→23:55)
[2017-03-24 04:19] LABS: ALANINE AMINOTRANSFERASE 26 U/L (21-72); ALBUMIN 2.5 g/dL (3.5-5.0); ALKALINE PHOSPHATASE 50 U/L (38-126); ANION GAP 7 (5-19); ASPARTATE AMINO TRANSFERASE 20 U/L (17-59); BILIRUBIN,DIRECT 0.2 mg/dL (0.0-0.4); BILIRUBIN,TOTAL 0.5 mg/dL (0.2-1.3); BLOOD UREA NITROGEN 11 mg/dL (7-20); CALCIUM 7.7 mg/dL (8.4-10.2); CARBON DIOXIDE 28 mmol/L (22-30); CHLORIDE 103 mmol/L (98-107); CREATININE RESULT 0.65 mg/dL (0.52-1.25); GLUCOSE 91 mg/dL (75-110); MAGNESIUM 1.8 mg/dL (1.6-2.3); PHOSPHORUS 2.1 mg/dL (2.5-4.5); POTASSIUM 3.3 mmol/L (3.6-5.0); SODIUM 138.2 mmol/L (137-145)
[2017-03-24 04:23] LABS: ABSOLUTE BASOPHILS # (AUTO) 0.1 10^3/uL (0.0-0.2); ABSOLUTE EOSINOPHILS # (AUTO) 0.8 10^3/uL (0.0-0.6); ABSOLUTE LYMPHOCYTES (AUTO) 2.3 10^3/uL (0.5-4.7); ABSOLUTE MONOCYTES (AUTO) 1.9 10^3/uL (0.1-1.4); ABSOLUTE NEUT (AUTO) 8.5 10^3/uL (1.7-8.2); BASOPHILS % (AUTO) 0.4 % (0-2); EOSINOPHILS % (AUTO) 5.5 % (0-6); HEMATOCRIT 33.1 % (37.9-51.0); HEMOGLOBIN 10.5 g/dL (13.5-17.0); HGB HCT DIFFERENCE -1.6; LYMPHOCYTES % (AUTO) 17.1 % (13-45); MEAN CORPUSCULAR HEMOGLOBIN 28.5 pg (27.0-33.4); MEAN CORPUSCULAR HGB CONC 31.7 g/dL (32.0-36.0); MEAN CORPUSCULAR VOLUME 90 fl (80-97); RED BLOOD COUNT 3.69 10^6/uL (4.35-5.55); WHITE BLOOD COUNT 13.6 10^3/uL (4.0-10.5)
[2017-03-24] MEDS: LEVOFLOXACIN 500 MG/D5W RTU 500 MG/100 ML RTUPB IV SCH (05:42)
[2017-03-24 05:57] LABS: ARTERIAL BLOOD BASE EXCESS 5.1 mmol/L; ARTERIAL BLOOD O2 SATURATION 94.8 % (94-98)
--- NOTE | 2017-03-24 06:48 | RADIOLOGY REPORT (SQ) ---
EXAM DESCRIPTION: CHEST SINGLE VIEW COMPLETED DATE/TIME: 03/24/2017 6:29 am REASON FOR STUDY: copd COMPARISON: 03/23/2017. EXAM PARAMETERS: NUMBER OF VIEWS: One view. TECHNIQUE: Single frontal radiographic view of the chest acquired. RADIATION DOSE: NA LIMITATIONS: None. FINDINGS: LUNGS AND PLEURA: Mild interstitial markings. MEDIASTINUM AND HILAR STRUCTURES: No masses. Contour normal. HEART AND VASCULAR STRUCTURES: Heart normal in size. Normal vasculature. BONES: No acute findings. HARDWARE: Median sternotomy. OTHER: No other significant finding. IMPRESSION: No significant interval change. TECHNICAL DOCUMENTATION: JOB ID: [id number]
[2017-03-24] MEDS ORDERED: ALBUTEROL SULFATE HFA (90 MCG/PUFF) 8 GM MDI (1 MDI/ER DISP) IH PRN (08:17)
--- NOTE | 2017-03-24 08:17 | PDOC PROGRESS REPORT ---
Subjective Progress Note for:: 03/24/17 Subjective:: Patient postoperatively day 2. Hypertension has resolved. Patient has baseline shortness of breath but unsure whether he is more short of breath than usual. Has baseline shortness of breath on exertion. No chills or fever. No nausea or vomiting. Abdomen still sore but able to tolerate oral intake. Physical Exam Vital Signs: Temp Pulse Resp BP Pulse Ox 98.0 F 90 23 H 135/86 H 94 03/23/17 20:00 03/24/17 02:00 03/24/17 06:01 03/24/17 06:01 03/24/17 06:01 Intake & Output 03/23/17 03/24/17 03/25/17 06:59 06:59 06:59 Intake Total 1937 1382 Output Total 1050 1475 Balance 887 -93 Weight 68.7 kg General appearance: PRESENT: no acute distress, cooperative Head exam: PRESENT: normocephalic Eye exam: PRESENT: EOMI Mouth exam: PRESENT: moist, neck supple Respiratory exam: PRESENT: rhonchi - Scattered bilateral. ABSENT: wheezes Cardiovascular exam: PRESENT: RRR. ABSENT: gallop GI/Abdominal exam: PRESENT: soft, tenderness - Mild diffusely. ABSENT: distended Extremities exam: ABSENT: pedal edema Neurological exam: PRESENT: alert, awake, oriented to situation Skin exam: PRESENT: dry, warm. ABSENT: cyanosis Results Laboratory Results: 03/24/17 03:49 03/24/17 03:49 03/23/17 03/24/17 03/24/17 08:25 03:49 03:49 WBC 13.6 H RBC 3.69 L Hgb 10.5 L Hct 33.1 L MCV 90 MCH 28.5 MCHC 31.7 L RDW 14.0 Plt Count 258 Seg Neutrophils % 63.0 Lymphocytes % 17.1 Monocytes % 14.0 H Eosinophils % 5.5 Basophils % 0.4 Absolute Neutrophils 8.5 H Absolute Lymphocytes 2.3 Absolute Monocytes 1.9 H Absolute Eosinophils 0.8 H Absolute Basophils 0.1 Carbonic Acid 1.58 H HCO3/H2CO3 Ratio 18:1 ABG pH 7.35 ABG pCO2 52.6 H ABG pO2 98.2 ABG HCO3 28.5 H ABG O2 Saturation 97.1 ABG Base Excess 2.1 FiO2 3L Sodium 138.2 Potassium 3.3 L Chloride 103 Carbon Dioxide 28 Anion Gap 7 BUN 11 Creatinine 0.65 Est GFR ( Amer) > 60 Est GFR (Non-Af Amer) > 60 Glucose 91 Calcium 7.7 L Phosphorus 2.1 L Magnesium 1.8 Total Bilirubin 0.5 AST 20 ALT 26 Alkaline Phosphatase 50 Total Protein 5.0 L Albumin 2.5 L 03/24/17 05:35 WBC RBC Hgb Hct MCV MCH MCHC RDW Plt Count Seg Neutrophils % Lymphocytes % Monocytes % Eosinophils % Basophils % Absolute Neutrophils Absolute Lymphocytes Absolute Monocytes Absolute Eosinophils Absolute Basophils Carbonic Acid 1.48 H HCO3/H2CO3 Ratio 20:1 ABG pH 7.41 ABG pCO2 49.3 H ABG pO2 73.7 L ABG HCO3 30.5 H ABG O2 Saturation 94.8 ABG Base Excess 5.1 FiO2 3 LITERS Sodium Potassium Chloride Carbon Dioxide Anion Gap BUN Creatinine Est GFR ( Amer) Est GFR (Non-Af Amer) Glucose Calcium Phosphorus Magnesium Total Bilirubin AST ALT Alkaline Phosphatase Total Protein Albumin 03/22/17 03/22/17 03/23/17 22:00 22:00 04:45 Creatine Kinase 180 H 150 CK-MB (CK-2) 5.77 H Troponin I 0.021 03/23/17 03/23/17 03/23/17 04:45 15:30 15:30 Creatine Kinase 125 CK-MB (CK-2) 5.06 H 4.09 Troponin I 0.024 0.013 Impressions: Abdomen/Pelvis CT 03/22/17 13:49 IMPRESSION: SMALL BOWEL OBSTRUCTION SECONDARY TO INCARCERATED LEFT INGUINAL HERNIA. NO PNEUMATOSIS OR FREE AIR. 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 FOLLOW-UP VASCULAR SURGICAL CONSULTATION RIGHT HIP. PATCHY AIRSPACE OPACITIES WITHIN THE RIGHT MIDDLE LOBE AND LEFT LOWER LOBE MAY REPRESENT ASPIRATION OR DEVELOPING PNEUMONIA. Chest X-Ray 03/24/17 06:00 IMPRESSION: No significant interval change. 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) Is this a current diagnosis for this admission?: Yes (4) Hypocalcemia Is this a current diagnosis for this admission?: Yes (5) Hypertension Qualifiers: Hypertension type: essential hypertension Qualified Code(s): I10 - Essential (primary) hypertension (6) Hyperlipidemia Qualifiers: Hyperlipidemia type: unspecified Qualified Code(s): E78.5 - Hyperlipidemia, unspecified (7) Diastolic heart failure Qualifiers: Heart failure chronicity: chronic Qualified Code(s): I50.32 - Chronic diastolic (congestive) heart failure Is this a current diagnosis for this admission?: Yes (8) CAD (coronary artery disease) Qualifiers: Coronary Disease-Associated Artery/Lesion type: unspecified vessel or lesion type [place] vs. transplanted heart: [place] heart Associated angina: without angina Qualified Code(s): I25.10 - Atherosclerotic heart disease of [place] coronary artery without angina pectoris Is this a current diagnosis for this admission?: Yes (9) COPD (chronic obstructive pulmonary disease) Qualifiers: COPD type: unspecified COPD Qualified Code(s): J44.9 - Chronic obstructive pulmonary disease, unspecified Is this a current diagnosis for this admission?: Yes - Time Time Spent with patient: 25-34 minutes - Plan Summary Plan Summary: Replace potassium. Monitor electrolytes. Begin intravenous Lasix seeing if his breathing will improve. Bronchodilators and inhaled steroids , continue other medications and supportive care. Will continue to follow.
[2017-03-24] MEDS ORDERED: POTASSI CL 20 MEQ/50 ML RIDER 20 MEQ/50 ML RTUPB IV SCH (09:00)
[2017-03-24] MEDS: MESALAMINE 250 MG CAPSULE.SA PO SCH ×2 (10:56→19:30)
[2017-03-24] MEDS: ASPIRIN 325 MG TABLET PO SCH (10:57)
[2017-03-24] MEDS: METOPROLOL TARTRATE 25 MG TABLET PO SCH ×2 (10:57→19:30)
[2017-03-24] MEDS: FLUTICASONE NASAL SPRAY 50 MCG/SPRY 120 SPRAY/16 GM NASL SCH ×2 (10:59→21:25)
[2017-03-24] MEDS: FUROSEMIDE INJ/PF 40 MG/4 ML SDV IV SCH (10:59)
[2017-03-24] MEDS: BUDESONIDE/FORMOTEROL 160-4.5 MCG 60 PUFF/6 GM MDI IH SCH (12:10)
[2017-03-24] MEDS: IPRATROPIUM/ALBUTEROL 120 PUFF/4 GM MDI IH SCH ×3 (12:10→21:25)
--- NOTE | 2017-03-24 12:20 | PDOC PROGRESS REPORT ---
Subjective Progress Note for:: 03/24/17 Subjective:: Awake alert in no distress Physical Exam Vital Signs: Temp Pulse Resp BP Pulse Ox 97.6 F 94 20 151/82 H 100 03/24/17 08:00 03/24/17 08:19 03/24/17 08:19 03/24/17 08:00 03/24/17 08:19 Intake & Output 03/23/17 03/24/17 03/25/17 06:59 06:59 06:59 Intake Total 1937 1382 337 Output Total 1050 1475 Balance 887 -93 337 Weight 68.7 kg General appearance: PRESENT: no acute distress, disheveled, thin, well-developed Head exam: PRESENT: atraumatic, normocephalic Eye exam: PRESENT: conjunctiva pale, EOMI Mouth exam: PRESENT: moist, neck supple, tongue midline Teeth exam: PRESENT: poor dentation Neck exam: ABSENT: carotid bruit, JVD, lymphadenopathy, thyromegaly Respiratory exam: PRESENT: decreased breath sounds, prolonged expiratory phas, rhonchi, symmetrical Cardiovascular exam: PRESENT: RRR, +S1, +S2 Pulses: PRESENT: normal radial pulses GI/Abdominal exam: PRESENT: diminished bowel sounds, other - Status post surgery Rectal exam: PRESENT: deferred Gentrourinary exam: PRESENT: indwelling catheter Musculoskeletal exam: PRESENT: normal inspection Neurological exam: PRESENT: alert, awake Psychiatric exam: PRESENT: normal mood Skin exam: PRESENT: dry, warm Results Laboratory Results: 03/24/17 03:49 03/24/17 03:49 03/23/17 03/24/17 03/24/17 08:25 03:49 03:49 WBC 13.6 H RBC 3.69 L Hgb 10.5 L Hct 33.1 L MCV 90 MCH 28.5 MCHC 31.7 L RDW 14.0 Plt Count 258 Seg Neutrophils % 63.0 Lymphocytes % 17.1 Monocytes % 14.0 H Eosinophils % 5.5 Basophils % 0.4 Absolute Neutrophils 8.5 H Absolute Lymphocytes 2.3 Absolute Monocytes 1.9 H Absolute Eosinophils 0.8 H Absolute Basophils 0.1 Carbonic Acid 1.58 H HCO3/H2CO3 Ratio 18:1 ABG pH 7.35 ABG pCO2 52.6 H ABG pO2 98.2 ABG HCO3 28.5 H ABG O2 Saturation 97.1 ABG Base Excess 2.1 FiO2 3L Sodium 138.2 Potassium 3.3 L Chloride 103 Carbon Dioxide 28 Anion Gap 7 BUN 11 Creatinine 0.65 Est GFR ( Amer) > 60 Est GFR (Non-Af Amer) > 60 Glucose 91 Calcium 7.7 L Phosphorus 2.1 L Magnesium 1.8 Total Bilirubin 0.5 AST 20 ALT 26 Alkaline Phosphatase 50 Total Protein 5.0 L Albumin 2.5 L 03/24/17 05:35 WBC RBC Hgb Hct MCV MCH MCHC RDW Plt Count Seg Neutrophils % Lymphocytes % Monocytes % Eosinophils % Basophils % Absolute Neutrophils Absolute Lymphocytes Absolute Monocytes Absolute Eosinophils Absolute Basophils Carbonic Acid 1.48 H HCO3/H2CO3 Ratio 20:1 ABG pH 7.41 ABG pCO2 49.3 H ABG pO2 73.7 L ABG HCO3 30.5 H ABG O2 Saturation 94.8 ABG Base Excess 5.1 FiO2 3 LITERS Sodium Potassium Chloride Carbon Dioxide Anion Gap BUN Creatinine Est GFR ( Amer) Est GFR (Non-Af Amer) Glucose Calcium Phosphorus Magnesium Total Bilirubin AST ALT Alkaline Phosphatase Total Protein Albumin 03/22/17 03/22/17 03/23/17 22:00 22:00 04:45 Creatine Kinase 180 H 150 CK-MB (CK-2) 5.77 H Troponin I 0.021 03/23/17 03/23/17 03/23/17 04:45 15:30 15:30 Creatine Kinase 125 CK-MB (CK-2) 5.06 H 4.09 Troponin I 0.024 0.013 Impressions: Abdomen/Pelvis CT 03/22/17 13:49 IMPRESSION: SMALL BOWEL OBSTRUCTION SECONDARY TO INCARCERATED LEFT INGUINAL HERNIA. NO PNEUMATOSIS OR FREE AIR. 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 FOLLOW-UP VASCULAR SURGICAL CONSULTATION RIGHT HIP. PATCHY AIRSPACE OPACITIES WITHIN THE RIGHT MIDDLE LOBE AND LEFT LOWER LOBE MAY REPRESENT ASPIRATION OR DEVELOPING PNEUMONIA. Chest X-Ray 03/24/17 06:00 IMPRESSION: No significant interval change. Assessment & Plan - Diagnosis (1) Hernia repair Is this a current diagnosis for this admission?: Yes (2) COPD exacerbation Is this a current diagnosis for this admission?: Yes - Time Critical Time spent with patient: 25-34 minutes
[2017-03-24] MEDS ORDERED: POTASSIUM CHLORIDE 10 MEQ TABLET.SA PO ONE ×3 (13:00→17:00)
--- NOTE | 2017-03-24 15:11 | PROGRESS NOTE E ---
Progress Note NAME: AUSTIN LEWIS : 1935 AGE: 82Y DATE: 03/24/2017 ROOM: [facility] SUBJECTIVE: At the present time, is still in the intensive care unit. He is complaining of some pains in the left groin, primarily when he coughs. He is afebrile and his white count is still elevated to 13.6. PLAN: The plan is to discontinue the [place] today and possibly transfer him to the floor. DICTATING PHYSICIAN: SAM BUCK M.D. [id number] PHY#: [id number] ID: [id number] JOB#: [id number] ACCT: [id number] cc: >
[2017-03-24] MEDS: IPRATROPIUM/ALBUTEROL 0.5-2.5 MG/3 ML AMPUL NEB PRN (23:55)
[2017-03-25] MEDS: AMPICILLIN SODIUM/SULBACTAM NA 3 GM in NORMAL SALINE 100 ML IV SCH ×4 (04:17→21:07)
[2017-03-25] MEDS: IPRATROPIUM/ALBUTEROL 0.5-2.5 MG/3 ML AMPUL NEB PRN ×2 (05:16→16:50)
[2017-03-25 05:17] LABS: ANION GAP 10 (5-19); BLOOD UREA NITROGEN 13 mg/dL (7-20); CALCIUM 8.8 mg/dL (8.4-10.2); CARBON DIOXIDE 32 mmol/L (22-30); CHLORIDE 102 mmol/L (98-107); GLUCOSE 102 mg/dL (75-110); POTASSIUM 4.9 mmol/L (3.6-5.0); SODIUM 143.8 mmol/L (137-145)
[2017-03-25] MEDS: LEVOFLOXACIN 500 MG/D5W RTU 500 MG/100 ML RTUPB IV SCH (05:59)
[2017-03-25] MEDS ORDERED: ALBUTEROL SULFATE HFA (90 MCG/PUFF) 200 PUFF/8.5 GM MDI IH PRN (08:11)
[2017-03-25] MEDS: FUROSEMIDE INJ/PF 40 MG/4 ML SDV IV SCH (10:08)
[2017-03-25] MEDS: METOPROLOL TARTRATE 25 MG TABLET PO SCH ×2 (10:08→21:08)
[2017-03-25] MEDS: MESALAMINE 250 MG CAPSULE.SA PO SCH ×2 (10:08→19:03)
[2017-03-25] MEDS: ASPIRIN 325 MG TABLET PO SCH (10:08)
[2017-03-25] MEDS: FLUTICASONE NASAL SPRAY 50 MCG/SPRY 120 SPRAY/16 GM NASL SCH ×2 (10:08→21:09)
[2017-03-25] MEDS: IPRATROPIUM/ALBUTEROL 120 PUFF/4 GM MDI IH SCH ×4 (10:09→21:09)
[2017-03-25] MEDS: BUDESONIDE/FORMOTEROL 160-4.5 MCG 60 PUFF/6 GM MDI IH SCH (11:00)
--- NOTE | 2017-03-25 14:56 | PDOC PROGRESS REPORT ---
Subjective Progress Note for:: 03/25/17 Subjective:: Patient feels better today. Patient and family reports that the patient's breathing is baseline. Patient denies any shortness of breath nausea or vomiting. No chills or fever as well. Denies any chest pain. Patient is able to tolerate oral intake and activity. Patient wanting to go home rather than to subacute rehabilitation. Physical Exam Vital Signs: Temp Pulse Resp BP Pulse Ox 98.8 F 114 H 16 139/84 H 92 03/25/17 07:35 03/25/17 14:30 03/25/17 14:30 03/25/17 07:35 03/25/17 14:30 Intake & Output 03/24/17 03/25/17 03/26/17 06:59 06:59 06:59 Intake Total 1382 1199 200 Output Total 1475 400 40 Balance -93 799 160 General appearance: PRESENT: no acute distress, cooperative Head exam: PRESENT: normocephalic Eye exam: PRESENT: EOMI Mouth exam: PRESENT: moist, neck supple Neck exam: ABSENT: JVD Respiratory exam: PRESENT: rhonchi - Bilateral, few Cardiovascular exam: PRESENT: RRR, tachycardia - Slightly. ABSENT: gallop GI/Abdominal exam: PRESENT: hypoactive bowel sounds, soft. ABSENT: distended Extremities exam: ABSENT: pedal edema Neurological exam: PRESENT: alert, awake, oriented to situation Skin exam: PRESENT: dry, warm. ABSENT: cyanosis Results Laboratory Results: 03/24/17 03:49 03/25/17 04:03 03/25/17 04:03 Sodium 143.8 Potassium 4.9 Chloride 102 Carbon Dioxide 32 H Anion Gap 10 BUN 13 Creatinine 0.80 Est GFR ( Amer) > 60 Est GFR (Non-Af Amer) > 60 Glucose 102 Calcium 8.8 03/22/17 03/22/17 03/23/17 22:00 22:00 04:45 Creatine Kinase 180 H 150 CK-MB (CK-2) 5.77 H Troponin I 0.021 NT-Pro-B Natriuret Pep 03/23/17 03/23/17 03/23/17 04:45 15:30 15:30 Creatine Kinase 125 CK-MB (CK-2) 5.06 H 4.09 Troponin I 0.024 0.013 NT-Pro-B Natriuret Pep 03/24/17 03:49 Creatine Kinase CK-MB (CK-2) Troponin I NT-Pro-B Natriuret Pep 1890 H Impressions: Abdomen/Pelvis CT 03/22/17 13:49 IMPRESSION: SMALL BOWEL OBSTRUCTION SECONDARY TO INCARCERATED LEFT INGUINAL HERNIA. NO PNEUMATOSIS OR FREE AIR. 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 FOLLOW-UP VASCULAR SURGICAL CONSULTATION RIGHT HIP. PATCHY AIRSPACE OPACITIES WITHIN THE RIGHT MIDDLE LOBE AND LEFT LOWER LOBE MAY REPRESENT ASPIRATION OR DEVELOPING PNEUMONIA. Chest X-Ray 03/24/17 06:00 IMPRESSION: No significant interval change. 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) Is this a current diagnosis for this admission?: Yes (4) Hypocalcemia Is this a current diagnosis for this admission?: Yes (5) Hypertension Qualifiers: Hypertension type: essential hypertension Qualified Code(s): I10 - Essential (primary) hypertension (6) Hyperlipidemia Qualifiers: Hyperlipidemia type: unspecified Qualified Code(s): E78.5 - Hyperlipidemia, unspecified (7) Diastolic heart failure Qualifiers: Heart failure chronicity: chronic Qualified Code(s): I50.32 - Chronic diastolic (congestive) heart failure Is this a current diagnosis for this admission?: Yes (8) CAD (coronary artery disease) Qualifiers: Coronary Disease-Associated Artery/Lesion type: unspecified vessel or lesion type [place] vs. transplanted heart: [place] heart Associated angina: without angina Qualified Code(s): I25.10 - Atherosclerotic heart disease of [place] coronary artery without angina pectoris Is this a current diagnosis for this admission?: Yes (9) COPD (chronic obstructive pulmonary disease) Qualifiers: COPD type: unspecified COPD Qualified Code(s): J44.9 - Chronic obstructive pulmonary disease, unspecified Is this a current diagnosis for this admission?: Yes - Time Time Spent with patient: 25-34 minutes - Plan Summary Plan Summary: Continue physical therapy. We will increase the patient's metoprolol. So far no exacerbation of COPD no respiratory failure. Patient's respiratory pattern is baseline according to him and to the family. We will continue to monitor.
--- NOTE | 2017-03-25 18:38 | PROGRESS NOTE E ---
Progress Note NAME: AUSTIN LEWIS : 1935 AGE: 82Y DATE: 03/25/2017 ROOM: 303 He was finally able to ambulate with the help of Physical Therapy. He was able to ambulate about 80 steps. He remains afebrile. His white count yesterday was slightly elevated. His incision site looks clean and dry. He is supposed to have regular diet today. He refuses to go to a rehabilitation facility and wants to go home. PLAN: Repeat his CBC in the morning, and if it is normal and he remains afebrile and able to ambulate better, then he might be discharged in the next 24-48 hours. He lives by himself, and he needs to show more physical activity to live by himself. We will continue his IV antibiotics for another 24-48 hours. Antibiotics primarily for his evidence of possible pneumonia. DICTATING PHYSICIAN: SAM BUCK M.D. [id number] PHY#: [id number] ID: [id number] JOB#: [id number] ACCT: [id number] cc: >
[2017-03-25] MEDS ORDERED: HALOPERIDOL LACTATE INJ 5 MG/1 ML VIAL ONE (20:33)
[2017-03-25] MEDS: DIPHENHYDRAMINE HCL 25 MG CAPSULE PO SCH (21:08)
[2017-03-25] MEDS: SERTRALINE HCL 50 MG TABLET PO SCH (21:09)
[2017-03-25] MEDS ORDERED: HALOPERIDOL LACTATE INJ 5 MG/1 ML VIAL IV ONE (22:00)
[2017-03-26] MEDS ORDERED: LORAZEPAM INJ 2 MG/1 ML VIAL ONE
[2017-03-26] MEDS ORDERED: LORAZEPAM INJ 2 MG/1 ML VIAL IM ONE (00:30)
[2017-03-26] MEDS: AMPICILLIN SODIUM/SULBACTAM NA 3 GM in NORMAL SALINE 100 ML IV SCH ×4 (03:44→21:59)
[2017-03-26] MEDS: LEVOFLOXACIN 500 MG TABLET PO SCH (06:07)
--- NOTE | 2017-03-26 09:14 | PDOC PROGRESS REPORT ---
Subjective Progress Note for:: 03/26/17 Subjective:: Patient reportedly was trying to get up in bed last night. Reported some agitation. Patient was given benzodiazepines and antipsychotics and his agitation got worse. He was placed in restraints. No reported temperature spikes. No reported worsening respirations. No diarrhea, nausea or vomiting, pain or discomfort at this time. Physical Exam Vital Signs: Temp Pulse Resp BP Pulse Ox 99.8 F 98 20 127/91 H 99 03/26/17 03:43 03/26/17 03:43 03/26/17 03:43 03/26/17 03:43 03/26/17 03:43 Intake & Output 03/25/17 03/26/17 03/27/17 06:59 06:59 06:59 Intake Total 1199 1420 Output Total 400 90 Balance 799 1330 Weight 67.5 kg General appearance: PRESENT: no acute distress, cooperative Head exam: PRESENT: normocephalic Eye exam: PRESENT: EOMI Mouth exam: PRESENT: moist, neck supple Neck exam: ABSENT: JVD Respiratory exam: PRESENT: decreased breath sounds - Bilateral., rhonchi - Minimal bilateral.. ABSENT: wheezes Cardiovascular exam: PRESENT: RRR. ABSENT: gallop GI/Abdominal exam: PRESENT: hypoactive bowel sounds, soft. ABSENT: distended Extremities exam: ABSENT: pedal edema Neurological exam: PRESENT: alert, awake Psychiatric exam: ABSENT: agitated Focused psych exam: PRESENT: restlessness - Mildly Skin exam: PRESENT: dry, warm. ABSENT: cyanosis Results Laboratory Results: 03/24/17 03:49 03/25/17 04:03 03/22/17 03/22/17 03/23/17 22:00 22:00 04:45 Creatine Kinase 180 H 150 CK-MB (CK-2) 5.77 H Troponin I 0.021 NT-Pro-B Natriuret Pep 03/23/17 03/23/17 03/23/17 04:45 15:30 15:30 Creatine Kinase 125 CK-MB (CK-2) 5.06 H 4.09 Troponin I 0.024 0.013 NT-Pro-B Natriuret Pep 03/24/17 03:49 Creatine Kinase CK-MB (CK-2) Troponin I NT-Pro-B Natriuret Pep 1890 H Impressions: Abdomen/Pelvis CT 03/22/17 13:49 IMPRESSION: SMALL BOWEL OBSTRUCTION SECONDARY TO INCARCERATED LEFT INGUINAL HERNIA. NO PNEUMATOSIS OR FREE AIR. 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 FOLLOW-UP VASCULAR SURGICAL CONSULTATION RIGHT HIP. PATCHY AIRSPACE OPACITIES WITHIN THE RIGHT MIDDLE LOBE AND LEFT LOWER LOBE MAY REPRESENT ASPIRATION OR DEVELOPING PNEUMONIA. Chest X-Ray 03/24/17 06:00 IMPRESSION: No significant interval change. 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) Is this a current diagnosis for this admission?: Yes (4) Hypocalcemia Is this a current diagnosis for this admission?: Yes (5) Hypertension Qualifiers: Hypertension type: essential hypertension Qualified Code(s): I10 - Essential (primary) hypertension (6) Hyperlipidemia Qualifiers: Hyperlipidemia type: unspecified Qualified Code(s): E78.5 - Hyperlipidemia, unspecified (7) Diastolic heart failure Qualifiers: Heart failure chronicity: chronic Qualified Code(s): I50.32 - Chronic diastolic (congestive) heart failure Is this a current diagnosis for this admission?: Yes (8) CAD (coronary artery disease) Qualifiers: Coronary Disease-Associated Artery/Lesion type: unspecified vessel or lesion type [place] vs. transplanted heart: [place] heart Associated angina: without angina Qualified Code(s): I25.10 - Atherosclerotic heart disease of [place] coronary artery without angina pectoris Is this a current diagnosis for this admission?: Yes (9) COPD (chronic obstructive pulmonary disease) Qualifiers: COPD type: unspecified COPD Qualified Code(s): J44.9 - Chronic obstructive pulmonary disease, unspecified Is this a current diagnosis for this admission?: Yes - Time Time Spent with patient: 25-34 minutes - Plan Summary Plan Summary: We will repeat chest x-ray and follow-up WBC. Recommend to discontinue restraints and hold any sedatives or antipsychotics. Continue antibiotics. Can switch to oral if surgery agrees. Continue physical therapy. I will put the patient on a sitter. Continue supportive care.
--- NOTE | 2017-03-26 09:16 | EKG REPORT ---
SEVERITY:- ABNORMAL ECG - SINUS RHYTHM WITH APCs MULTIFORM VENTRICULAR PREMATURE COMPLEXES LEFT ATRIAL ABNORMALITY RIGHT AXIS DEVIATION : Confirmed by: Shayla Calvin 26-Mar-2017 09:15:21
--- NOTE | 2017-03-26 10:05 | RADIOLOGY REPORT (SQ) ---
EXAM DESCRIPTION: CHEST SINGLE VIEW COMPLETED DATE/TIME: 03/26/2017 9:39 am REASON FOR STUDY: SOB, pneumonia? COMPARISON: Chest films 07/10/2016, 03/22/2017, 03/24/2017 EXAM PARAMETERS: NUMBER OF VIEWS: One view. TECHNIQUE: Single frontal radiographic view of the chest acquired. RADIATION DOSE: NA LIMITATIONS: None. FINDINGS: LUNGS AND PLEURA: Minimal bandlike atelectasis just above the right hemidiaphragm. Few Marvin lines in the right and left lateral costophrenic sulci from mild interstitial edema. No pleural effusion. No pneumothorax. No dense consolidation worrisome for pneumonia. MEDIASTINUM AND HILAR STRUCTURES: No masses. Contour normal. HEART AND VASCULAR STRUCTURES: No cardiomegaly. Old sternotomy and CABG BONES: No acute findings. HARDWARE: None in the chest. OTHER: No other significant finding. IMPRESSION: Mild interstitial edema at the bases. No pleural effusion. No dense consolidation worr isome for pneumonia TECHNICAL DOCUMENTATION: JOB ID: [id number]
[2017-03-26] MEDS: METOPROLOL TARTRATE 25 MG TABLET PO SCH ×2 (10:17→22:00)
[2017-03-26] MEDS: IPRATROPIUM/ALBUTEROL 120 PUFF/4 GM MDI IH SCH ×4 (10:17→21:59)
[2017-03-26] MEDS: MESALAMINE 250 MG CAPSULE.SA PO SCH ×2 (10:17→18:02)
[2017-03-26] MEDS: ASPIRIN 325 MG TABLET PO SCH (10:18)
[2017-03-26] MEDS: TIOTROPIUM BROMIDE DPI 5 CAP/KIT (18 MCG/CAP) IH SCH (10:19)
[2017-03-26] MEDS: FLUTICASONE NASAL SPRAY 50 MCG/SPRY 120 SPRAY/16 GM NASL SCH ×2 (10:19→21:59)
[2017-03-26 10:21] LABS: ABSOLUTE BASOPHILS # (AUTO) 0.1 10^3/uL (0.0-0.2); ABSOLUTE EOSINOPHILS # (AUTO) 0.3 10^3/uL (0.0-0.6); ABSOLUTE LYMPHOCYTES (AUTO) 1.8 10^3/uL (0.5-4.7); ABSOLUTE MONOCYTES (AUTO) 2.2 10^3/uL (0.1-1.4); ABSOLUTE NEUT (AUTO) 13.7 10^3/uL (1.7-8.2); BASOPHILS % (AUTO) 0.5 % (0-2); EOSINOPHILS % (AUTO) 1.4 % (0-6); HEMATOCRIT 35.8 % (37.9-51.0); HEMOGLOBIN 11.4 g/dL (13.5-17.0); HGB HCT DIFFERENCE -1.6; LYMPHOCYTES % (AUTO) 10.1 % (13-45); MEAN CORPUSCULAR HEMOGLOBIN 28.6 pg (27.0-33.4); MEAN CORPUSCULAR HGB CONC 31.9 g/dL (32.0-36.0); MEAN CORPUSCULAR VOLUME 90 fl (80-97); RED CELL DISTRIBUTION WIDTH 13.8 % (11.5-14.0)
[2017-03-26 10:25] LABS: ARTERIAL BLOOD BASE EXCESS 7.6 mmol/L; ARTERIAL BLOOD O2 SATURATION 97.8 % (94-98)
[2017-03-26] MEDS: BUDESONIDE/FORMOTEROL 160-4.5 MCG 60 PUFF/6 GM MDI IH SCH (10:39)
--- NOTE | 2017-03-26 12:19 | PROGRESS NOTE E ---
Progress Note NAME: AUSTIN LEWIS : 1935 AGE: 82Y DATE: 03/26/2017 ROOM: 303 SUBJECTIVE: The patient had episode of confusion last night and needed Haldol and Ativan. The patient had a chest x-ray today which showed mild interstitial edema at the bases. The patient this morning appears lethargic but responsive and appears oriented though has some involuntary movements of the upper extremities and some verbalizations that were not understandable. OBJECTIVE: His abdomen is soft and nontender. The incision in the left groin appears to be clean and dry. PLAN: Transfer him to a rehab facility rather than discharge him home. I was just talking to his daughter this morning and she agreed with the plan, and I have already consulted social service for this. I will stop his IV fluids and may need to be diuresed a little bit. DICTATING PHYSICIAN: SAM BUCK M.D. [id number] PHY#: [id number] ID: [id number] JOB#: [id number] ACCT: [id number] cc: >
[2017-03-26] MEDS: SERTRALINE HCL 50 MG TABLET PO SCH (21:59)
[2017-03-26] MEDS: DIPHENHYDRAMINE HCL 25 MG CAPSULE PO SCH (22:00)
[2017-03-26] MEDS ORDERED: (PENDING PHARMACY ID) (Terazosin Hcl [Hytrin] 4 MG) PO SCH (22:00)
[2017-03-26] MEDS ORDERED: DOXAZOSIN MESYLATE 4 MG TABLET PO SCH (22:00)
[2017-03-27] MEDS: AMPICILLIN SODIUM/SULBACTAM NA 3 GM in NORMAL SALINE 100 ML IV SCH ×2 (03:08→10:10)
[2017-03-27] MEDS: IPRATROPIUM/ALBUTEROL 0.5-2.5 MG/3 ML AMPUL NEB PRN ×2 (05:38→09:52)
[2017-03-27] MEDS: LEVOFLOXACIN 500 MG TABLET PO SCH (05:55)
--- NOTE | 2017-03-27 08:13 | DISCHARGE SUMMARY E ---
Discharge Summary NAME: AUSTIN LEWIS : 1935 AGE: 82Y ADMITTED: 03/22/2017 DISCHARGED: 03/27/2017 FINAL DIAGNOSES: 1. Incarcerated left inguinal hernia, recurrent with bowel obstruction. 2. COPD. PROCEDURE: Reduction of incarcerated recurrent left inguinal hernia with mesh done 03/22/17. HOSPITAL COURSE: The patient underwent reduction and repair of recurrent incarcerated left inguinal hernia on the day of admission on 03/22/17. Postoperatively he was transferred to the ICU because of severe COPD and better monitoring. He was immediately extubated postop and the plan initially was to keep him intubated throughout the night. Because of extubation, he needed to be in the unit for better monitoring. At any rate, he did quite well and transferred to the floor on the second postop day. There is a question of also pneumonia, possibly due to aspiration, and he was continued on IV antibiotic therapy. On the night of 03/25/17 the patient got confused and needed Haldol and Ativan. The next day 03/26/17 he seems to be more awake and oriented. Since he lives by himself, we decided together with the daughter the patient is best to be transferred to a rehab facility. Initially we thought he could be transferred home, but because of the incident the other night, he needed to be in a rehab facility for a couple of weeks. At any rate, the patient to be transferred to a fpc today, 03/27/17, and the winifred in the incision can be removed after about a week in the fpc. The patient also to be followed up in the surgical clinic in about 2 weeks. DICTATING PHYSICIAN: SAM BUCK M.D. [id number] PHY#: [id number] ID: [id number] JOB#: [id number] ACCT: [id number] cc:Shay KU M.D. >
--- NOTE | 2017-03-27 09:41 | PDOC PROGRESS REPORT ---
Subjective Progress Note for:: 03/27/17 Subjective:: Patient slowly improves and stable. Patient denies any increasing shortness of breath nor any chills or fever. No nausea or vomiting denies any diarrhea. Denies abdominal pain and tolerating oral intake well. Physical Exam Vital Signs: Temp Pulse Resp BP Pulse Ox 97.3 F 78 19 152/84 H 99 03/27/17 07:51 03/27/17 07:51 03/27/17 07:51 03/27/17 07:51 03/27/17 07:51 Intake & Output 03/26/17 03/27/17 03/28/17 06:59 06:59 06:59 Intake Total 1420 800 120 Output Total 90 Balance 1330 800 120 Weight 67.5 kg 68.7 kg General appearance: PRESENT: no acute distress Head exam: PRESENT: normocephalic Eye exam: PRESENT: EOMI Mouth exam: PRESENT: moist, neck supple Neck exam: ABSENT: JVD Respiratory exam: PRESENT: decreased breath sounds. ABSENT: rhonchi, wheezes Cardiovascular exam: PRESENT: RRR. ABSENT: gallop GI/Abdominal exam: PRESENT: hypoactive bowel sounds, soft. ABSENT: distended Extremities exam: ABSENT: pedal edema Neurological exam: PRESENT: alert, awake, oriented to situation Results Laboratory Results: 03/26/17 10:02 03/25/17 04:03 03/26/17 03/26/17 09:55 10:02 WBC 18.0 H RBC 4.00 L Hgb 11.4 L Hct 35.8 L MCV 90 MCH 28.6 MCHC 31.9 L RDW 13.8 Plt Count 301 Seg Neutrophils % 76.0 Lymphocytes % 10.1 L Monocytes % 12.0 Eosinophils % 1.4 Basophils % 0.5 Absolute Neutrophils 13.7 H Absolute Lymphocytes 1.8 Absolute Monocytes 2.2 H Absolute Eosinophils 0.3 Absolute Basophils 0.1 Carbonic Acid 1.66 H HCO3/H2CO3 Ratio 20:1 ABG pH 7.40 ABG pCO2 55.3 H ABG pO2 106.4 H ABG HCO3 33.8 H ABG O2 Saturation 97.8 ABG Base Excess 7.6 FiO2 2L 03/22/17 03/22/17 03/23/17 22:00 22:00 04:45 Creatine Kinase 180 H 150 CK-MB (CK-2) 5.77 H Troponin I 0.021 NT-Pro-B Natriuret Pep 03/23/17 03/23/17 03/23/17 04:45 15:30 15:30 Creatine Kinase 125 CK-MB (CK-2) 5.06 H 4.09 Troponin I 0.024 0.013 NT-Pro-B Natriuret Pep 03/24/17 03:49 Creatine Kinase CK-MB (CK-2) Troponin I NT-Pro-B Natriuret Pep 1890 H Impressions: Abdomen/Pelvis CT 03/22/17 13:49 IMPRESSION: SMALL BOWEL OBSTRUCTION SECONDARY TO INCARCERATED LEFT INGUINAL HERNIA. NO PNEUMATOSIS OR FREE AIR. 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 FOLLOW-UP VASCULAR SURGICAL CONSULTATION RIGHT HIP. PATCHY AIRSPACE OPACITIES WITHIN THE RIGHT MIDDLE LOBE AND LEFT LOWER LOBE MAY REPRESENT ASPIRATION OR DEVELOPING PNEUMONIA. Chest X-Ray 03/26/17 00:00 IMPRESSION: Mild interstitial edema at the bases. No pleural effusion. 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) Is this a current diagnosis for this admission?: Yes (4) Hypocalcemia Is this a current diagnosis for this admission?: Yes (5) Hypertension Qualifiers: Hypertension type: essential hypertension Qualified Code(s): I10 - Essential (primary) hypertension (6) Hyperlipidemia Qualifiers: Hyperlipidemia type: unspecified Qualified Code(s): E78.5 - Hyperlipidemia, unspecified (7) Diastolic heart failure Qualifiers: Heart failure chronicity: chronic Qualified Code(s): I50.32 - Chronic diastolic (congestive) heart failure Is this a current diagnosis for this admission?: Yes (8) CAD (coronary artery disease) Qualifiers: Coronary Disease-Associated Artery/Lesion type: unspecified vessel or lesion type [place] vs. transplanted heart: [place] heart Associated angina: without angina Qualified Code(s): I25.10 - Atherosclerotic heart disease of [place] coronary artery without angina pectoris Is this a current diagnosis for this admission?: Yes (9) COPD (chronic obstructive pulmonary disease) Qualifiers: COPD type: unspecified COPD Qualified Code(s): J44.9 - Chronic obstructive pulmonary disease, unspecified Is this a current diagnosis for this admission?: Yes - Time Time Spent with patient: Less than 15 minutes - Plan Summary Plan Summary: Patient was [facility] by [facility] service [facility].Patient is going to have rehabilitation. Continue the antibiotic for 8 more days. We will sign off from the case. Please reconsult us as needed.
[2017-03-27] MEDS ORDERED: IPRATROPIUM/ALBUTEROL 0.5-2.5 MG/3 ML AMPUL NEB PRN (09:53)
[2017-03-27] MEDS: ASPIRIN 325 MG TABLET PO SCH (10:08)
[2017-03-27] MEDS: METOPROLOL TARTRATE 25 MG TABLET PO SCH (10:08)
[2017-03-27] MEDS: FLUTICASONE NASAL SPRAY 50 MCG/SPRY 120 SPRAY/16 GM NASL SCH (10:11)
[2017-03-27] MEDS: IPRATROPIUM/ALBUTEROL 120 PUFF/4 GM MDI IH SCH ×2 (10:11→13:30)
[2017-03-27] MEDS: TIOTROPIUM BROMIDE DPI 5 CAP/KIT (18 MCG/CAP) IH SCH (10:12)
[2017-03-27] MEDS: MESALAMINE 250 MG CAPSULE.SA PO SCH (10:13)
[2017-03-27] MEDS: BUDESONIDE/FORMOTEROL 160-4.5 MCG 60 PUFF/6 GM MDI IH SCH (11:19)
[2017-03-27 13:59] VITALS: BP 116/84
--- NOTE | 2017-03-29 07:48 | PDOC PROGRESS REPORT ---
Subjective Progress Note for:: 03/25/17 Subjective:: Awake alert in no distress Physical Exam Vital Signs: Temp Pulse Resp BP Pulse Ox 97.8 F 104 H 18 135/93 H 95 03/26/17 07:18 03/26/17 07:18 03/26/17 07:18 03/26/17 07:18 03/26/17 07:18 Intake & Output 03/25/17 03/26/17 03/27/17 06:59 06:59 06:59 Intake Total 1199 1420 Output Total 400 90 Balance 799 1330 Weight 67.5 kg General appearance: PRESENT: no acute distress, disheveled, thin, well-nourished Head exam: PRESENT: atraumatic, normocephalic Eye exam: PRESENT: conjunctiva pale, EOMI Mouth exam: PRESENT: moist, neck supple Neck exam: ABSENT: carotid bruit, JVD, lymphadenopathy, thyromegaly Respiratory exam: PRESENT: decreased breath sounds, prolonged expiratory phas, rhonchi, symmetrical, unlabored Pulses: PRESENT: normal radial pulses GI/Abdominal exam: PRESENT: other - s/p surgery Rectal exam: PRESENT: deferred Gentrourinary exam: PRESENT: indwelling catheter Musculoskeletal exam: PRESENT: normal inspection Neurological exam: PRESENT: awake Skin exam: PRESENT: dry, warm Results Laboratory Results: 03/24/17 03:49 03/25/17 04:03 03/22/17 03/22/17 03/23/17 22:00 22:00 04:45 Creatine Kinase 180 H 150 CK-MB (CK-2) 5.77 H Troponin I 0.021 NT-Pro-B Natriuret Pep 03/23/17 03/23/17 03/23/17 04:45 15:30 15:30 Creatine Kinase 125 CK-MB (CK-2) 5.06 H 4.09 Troponin I 0.024 0.013 NT-Pro-B Natriuret Pep 03/24/17 03:49 Creatine Kinase CK-MB (CK-2) Troponin I NT-Pro-B Natriuret Pep 1890 H Impressions: Abdomen/Pelvis CT 03/22/17 13:49 IMPRESSION: SMALL BOWEL OBSTRUCTION SECONDARY TO INCARCERATED LEFT INGUINAL HERNIA. NO PNEUMATOSIS OR FREE AIR. 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 FOLLOW-UP VASCULAR SURGICAL CONSULTATION RIGHT HIP. PATCHY AIRSPACE OPACITIES WITHIN THE RIGHT MIDDLE LOBE AND LEFT LOWER LOBE MAY REPRESENT ASPIRATION OR DEVELOPING PNEUMONIA. Assessment & Plan - Diagnosis (1) Hernia repair Is this a current diagnosis for this admission?: Yes (2) COPD exacerbation Is this a current diagnosis for this admission?: Yes
--- NOTE | 2017-03-29 07:50 | PDOC PROGRESS REPORT ---
Subjective Progress Note for:: 03/26/17 Subjective:: Awake alert in no distress Physical Exam Vital Signs: Temp Pulse Resp BP Pulse Ox 97.8 F 104 H 18 135/93 H 95 03/26/17 07:18 03/26/17 07:18 03/26/17 07:18 03/26/17 07:18 03/26/17 07:18 Intake & Output 03/25/17 03/26/17 03/27/17 06:59 06:59 06:59 Intake Total 1199 1420 Output Total 400 90 Balance 799 1330 Weight 67.5 kg General appearance: PRESENT: no acute distress, cooperative, disheveled, thin, well-developed Head exam: PRESENT: atraumatic, normocephalic Eye exam: PRESENT: conjunctiva pale, EOMI Mouth exam: PRESENT: dry mucosa, neck supple Neck exam: PRESENT: carotid bruit Respiratory exam: PRESENT: decreased breath sounds, prolonged expiratory phas, symmetrical, unlabored Cardiovascular exam: PRESENT: RRR, +S1, +S2 Pulses: PRESENT: normal radial pulses GI/Abdominal exam: PRESENT: other - s/p surgery Rectal exam: PRESENT: deferred Gentrourinary exam: PRESENT: indwelling catheter Musculoskeletal exam: PRESENT: normal inspection Neurological exam: PRESENT: alert, awake Psychiatric exam: PRESENT: normal mood Skin exam: PRESENT: dry, warm Results Laboratory Results: 03/24/17 03:49 03/25/17 04:03 03/22/17 03/22/17 03/23/17 22:00 22:00 04:45 Creatine Kinase 180 H 150 CK-MB (CK-2) 5.77 H Troponin I 0.021 NT-Pro-B Natriuret Pep 03/23/17 03/23/17 03/23/17 04:45 15:30 15:30 Creatine Kinase 125 CK-MB (CK-2) 5.06 H 4.09 Troponin I 0.024 0.013 NT-Pro-B Natriuret Pep 03/24/17 03:49 Creatine Kinase CK-MB (CK-2) Troponin I NT-Pro-B Natriuret Pep 1890 H Impressions: Abdomen/Pelvis CT 03/22/17 13:49 IMPRESSION: SMALL BOWEL OBSTRUCTION SECONDARY TO INCARCERATED LEFT INGUINAL HERNIA. NO PNEUMATOSIS OR FREE AIR. 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 FOLLOW-UP VASCULAR SURGICAL CONSULTATION RIGHT HIP. PATCHY AIRSPACE OPACITIES WITHIN THE RIGHT MIDDLE LOBE AND LEFT LOWER LOBE MAY REPRESENT ASPIRATION OR DEVELOPING PNEUMONIA. Assessment & Plan - Diagnosis (1) Hernia repair Is this a current diagnosis for this admission?: Yes (2) COPD exacerbation Is this a current diagnosis for this admission?: Yes
--- NOTE | 2017-03-29 07:51 | PDOC PROGRESS REPORT ---
Subjective Progress Note for:: 03/28/17 Subjective:: Awake alert in no distress Physical Exam Vital Signs: Temp Pulse Resp BP Pulse Ox 97.5 F 86 18 116/84 97 03/27/17 13:57 03/27/17 13:57 03/27/17 13:57 03/27/17 13:57 03/27/17 13:57 Intake & Output 03/27/17 03/28/17 03/29/17 06:59 06:59 06:59 Intake Total 800 313 Balance 800 313 Weight 68.7 kg General appearance: PRESENT: no acute distress, cooperative, disheveled, thin, well-developed Head exam: PRESENT: atraumatic, normocephalic Eye exam: PRESENT: conjunctiva pale, EOMI Mouth exam: PRESENT: dry mucosa, neck supple Neck exam: ABSENT: carotid bruit, JVD, lymphadenopathy, thyromegaly Respiratory exam: PRESENT: decreased breath sounds, prolonged expiratory phas, symmetrical, unlabored Cardiovascular exam: PRESENT: RRR, +S1, +S2 Pulses: PRESENT: normal radial pulses GI/Abdominal exam: PRESENT: other - s/p surgery Rectal exam: PRESENT: deferred Gentrourinary exam: PRESENT: indwelling catheter Musculoskeletal exam: PRESENT: normal inspection Neurological exam: PRESENT: alert, awake Psychiatric exam: PRESENT: normal mood Skin exam: PRESENT: warm Results Laboratory Results: 03/26/17 10:02 03/25/17 04:03 03/22/17 03/22/17 03/23/17 22:00 22:00 04:45 Creatine Kinase 180 H 150 CK-MB (CK-2) 5.77 H Troponin I 0.021 NT-Pro-B Natriuret Pep 03/23/17 03/23/17 03/23/17 04:45 15:30 15:30 Creatine Kinase 125 CK-MB (CK-2) 5.06 H 4.09 Troponin I 0.024 0.013 NT-Pro-B Natriuret Pep 03/24/17 03:49 Creatine Kinase CK-MB (CK-2) Troponin I NT-Pro-B Natriuret Pep 1890 H Impressions: Abdomen/Pelvis CT 03/22/17 13:49 IMPRESSION: SMALL BOWEL OBSTRUCTION SECONDARY TO INCARCERATED LEFT INGUINAL HERNIA. NO PNEUMATOSIS OR FREE AIR. 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 FOLLOW-UP VASCULAR SURGICAL CONSULTATION RIGHT HIP. PATCHY AIRSPACE OPACITIES WITHIN THE RIGHT MIDDLE LOBE AND LEFT LOWER LOBE MAY REPRESENT ASPIRATION OR DEVELOPING PNEUMONIA. Chest X-Ray 03/26/17 00:00 IMPRESSION: Mild interstitial edema at the bases. No pleural effusion. No dense consolidation worrisome for pneumonia Assessment & Plan - Diagnosis (1) Hernia repair Is this a current diagnosis for this admission?: Yes (2) COPD exacerbation Is this a current diagnosis for this admission?: Yes
== END 2017-03-27 14:46 | DRG 350 ==
LOC: ER 12:00 → UNDOADMIN 15:49 → EH 15:49 → ICU 15:49 → EH 21:30 → 3N 03-24 13:20
PROVIDERS: ATTEND Surgery
PROC: 0VTB0ZZ Resection of Left Testis, Open Approach (ICD-10-PCS; 2017-03-22)
PROC: 0YU60JZ Supplement Left Inguinal Region with Synthetic Substitute, Open Approach (ICD-10-PCS; principal; 2017-03-22 16:30)
DX: K40.30 Unilateral inguinal hernia, with obstruction, without gangrene, not specified as recurrent (principal); J69.0 Pneumonitis due to inhalation of food and vomit; I50.32 Chronic diastolic (congestive) heart failure; J96.12 Chronic respiratory failure with hypercapnia; J44.1 Chronic obstructive pulmonary disease with (acute) exacerbation; I95.9 Hypotension, unspecified; E87.6 Hypokalemia; D50.9 Iron deficiency anemia, unspecified; E83.51 Hypocalcemia; E78.5 Hyperlipidemia, unspecified; Z95.1 Presence of aortocoronary bypass graft; I10 Essential (primary) hypertension; F32.9 Major depressive disorder, single episode, unspecified; I25.10 Atherosclerotic heart disease of native coronary artery without angina pectoris; Z79.82 Long term (current) use of aspirin; Z79.899 Other long term (current) drug therapy; Z87.891 Personal history of nicotine dependence; Z87.19 Personal history of other diseases of the digestive system; Z99.81 Dependence on supplemental oxygen
CPT/HCPCS: 00830; 36415; 36600; 71010; 71020; 74177; 80048; 80053; 81001; 82272; 82550; 82553; 82803; 83605; 83690; 83735; 83880; 84100; 84484; 85025; 85610; 86850; 86900; 86901; 87040; 87070; 87086; 87205; 88302; 88305; 93005; 93010; 94660; 94667; 94668; 94799; 96361; 96365; 96375; 99291; C1781; G8978-GP; G8979-GP; J0295; J0330; J1630; J1642; J1940; J1956; J2060; J2250; J2270; J2405; J2704; J3010; J3480; J3490; J7030; J7040; J7620